=== PATIENT | male | born 1940 | race Caucasian/White ===

== ENCOUNTER 2019-10-25 09:06 | Outpatient (CLI) | payer MEDICARE, SELFPAY ==
--- NOTE | ~2019-10-25 | CT_ITS ---
EXAMINATION:CT chest high resolution wo co DATE: 10/25/2019 09:29 INDICATION: Cough. Chronic obstructive pulmonary disease. Contact with and suspected exposure to COVI D-19. TECHNIQUE: Computed tomography (CT) of the chest was performed without intravenous contrast. Automate d exposure control and iterative reconstruction technique were employed. The dose-length product (DLP ) was 580.03 mGy-cm. COMPARISON: Chest CT 06/12/2018 FINDINGS: There is chronic elevation of right hemidiaphragm. There is mild atelectasis bilaterally. A gain seen are 4 mm and 3 mm nodules in left lower lobe, consistent with granulomatous disease. Calcif ied bilateral lung nodules are consistent with old granulomatous disease. There is mild scarring in p araspinal right lower lobe with slight worsening. No pleural effusion. There is left atrial enlargeme nt of the heart. There are coronary artery calcifications. There is a left chest wall pacer with lead s in the right atrium and right ventricle. No pericardial effusion. There are changes of cholecystect bernadette. There is diffuse hepatic steatosis. There are bridging endplate osteophytes at multiple levels i n the spine, consistent with diffuse idiopathic skeletal hyperostosis (DISH). IMPRESSION: 1. Mild scarring in paraspinal right lower lobe with slight worsening. 2. Chronic elevation of right hemidiaphragm. 3. Diffuse hepatic steatosis. Reviewed, dictated and finalized at location B.
== END 2019-10-25 09:07 | disposition home or self-care (01) ==
LOC: ANHIMG 09:17
PROVIDERS: PCP Internal Medicine; Visit Provider Nurse Practitioner Family
DX: J44.9 Chronic obstructive pulmonary disease, unspecified (principal); R05 Cough; Z77.090 Contact with and (suspected) exposure to asbestos; K76.0 Fatty (change of) liver, not elsewhere classified
CPT/HCPCS: 71250

== ENCOUNTER 2020-03-10 14:29 | Outpatient (CLI) | payer MEDICARE, SELFPAY ==
--- NOTE | ~2020-03-10 | US_ITS ---
EXAMINATION: US carotid duplex BI DATE: 03/10/2020 15:07 INDICATION: Occlusion and stenosis of left carotid artery. TECHNIQUE: Grayscale, color Doppler, and pulsed Doppler images of the cervical carotid arteries were obtained. The degree of vessel stenosis is placed in one of the following categories: normal, <50%, 5 0-69%, >=70% but less than near-occlusion, near-occlusion, or total occlusion. Note that percent sten osis relative to normal distal artery lumen diameter is indirectly measured from velocity measurement s as described by Samy, et al. Radiology 2003; [id number]:340-346. COMPARISON: Ultrasound 08/29/2018 FINDINGS: RIGHT: The right common carotid artery (CCA) peak systolic velocity (PSV) is 66 cm/s. The right internal car otid artery (ICA) PSV is 97 cm/s. The right ICA end-diastolic velocity (EDV) is 18 cm/s. The right IC A/CCA PSV ratio is 1.5. Grayscale and color Doppler images yield an estimate of <50% diameter reducti on from plaque in the ICA. There is antegrade flow in the right vertebral artery. LEFT: The left CCA PSV is 74 cm/s. The left ICA PSV is 150 cm/s. The left ICA EDV is 24 cm/s. The left ICA/ CCA PSV ratio is 2.0. Grayscale and color Doppler images yield an estimate of >=50% diameter reductio n from plaque in the ICA. There is antegrade flow in the left vertebral artery. IMPRESSION: 1. <50% stenosis in the right internal carotid artery. 2. 50-69% stenosis in the left internal carotid artery. Reviewed, dictated and finalized at location A. LER
== END 2020-03-10 14:30 | disposition home or self-care (01) ==
PROVIDERS: PCP Internal Medicine; Visit Provider Internal Medicine Cardiovascular Disease
DX: I65.23 Occlusion and stenosis of bilateral carotid arteries (principal)
CPT/HCPCS: 93880

== ENCOUNTER 2020-03-21 11:39 | Emergency (ER) | payer MEDICARE, SELFPAY ==
[2020-03-21 11:40] VITALS: BP 150/70; PULSE 101; RESP 18; TEMP 36.6; O2SAT 99
--- NOTE | 2020-03-21 12:57 | ED.EPISTAXIS ---
HPI - Epistaxis General Chief complaint: Epistaxis Stated complaint: BLOODY NOSE Time Seen by Provider: 03/21/20 12:37 Source: patient Mode of arrival: ambulatory Limitations: no limitations History of Present Illness HPI Narrative: This is an 79-year-old male that presents the emergency department for left-sided epistaxis since last night. Reports he has had trouble with this over the last couple weeks. He has been seeing Dr. Guerra for this. Reports he had it cauterized yesterday. He takes Xarelto for A. fib. Denies fever. Related Data Home Medications Medication Instructions Recorded Confirmed amlodipine 10 mg tablet 10 mg PO DAILY 03/06/19 03/21/20 chlorthalidone 25 mg tablet 25 mg PO DAILY 03/06/19 03/21/20 pantoprazole 40 mg tablet,delayed 40 mg PO QAM 03/06/19 03/21/20 release tamsulosin 0.4 mg capsule 0.4 mg PO DAILY 03/06/19 03/21/20 atorvastatin 20 mg tablet 20 mg PO DAILY 03/06/20 03/21/20 Allergies Allergy/AdvReac Type Severity Reaction Status Date / Time clarithromycin Allergy Unknown Unknown Verified 03/21/20 11:42 venom-honey bee Allergy Unknown Unknown Verified 03/21/20 11:42 lisinopril AdvReac Unknown Cough Verified 03/21/20 11:42 Review of Systems Review of Systems: Narrative: CONSTITUTIONAL: Denies fever ENT: Reports epistaxis All systems reviewed & are unremarkable except as noted in HPI and below PMFSH Past Medical History Medical History (Updated 03/21/20 @ 15:58 by Beth Baron PA-C) Chronic a-fib Chronic obstructive pulmonary disease, unspecified CKD (chronic kidney disease) stage 3, GFR 30-59 ml/min Controlled type 2 diabetes mellitus without complication COPD exacerbation Essential hypertension Left carotid stenosis Nonrheumatic aortic valve regurgitation Obstructive sleep apnea Pacemaker Stenosis of right carotid artery Upper respiratory infection with cough and congestion Surgical History Surgical History (Updated 03/06/19 @ 08:56 by Lucy Jenkins CMA) History of cholecystectomy Family History Family History (Updated 11/09/16 @ 09:24 by DOCTOR UNKNOWN) Sibling Hypertension Patient's sister is in good health Patient's brother is in good health Mother Family history of malignant neoplasm Father Carcinoma of colon Other Family history of cardiovascular disease Social History Social History Smoking status: Never smoker Second hand tobacco smoke exposure: No Alcohol intake: current Gender identity (if verbalized by the patient): Male Exam Narrative: Exam Narrative: GENERAL: Well-appearing, well-nourished, and in no acute distress. HEAD: Normocephalic, atraumatic. EYES: EOMI. ENT: Left nare without active bleeding. I am able to see the area that was cauterized yesterday. Mucous membranes moist. Oropharynx without tonsillar hypertrophy exudate or other lesions. EXTREMITIES: Normal range of motion. No edema. SKIN: Warm, dry, no rash. NEURO: No focal deficits. Alert and oriented x3. PSYCH: Normal mood and affect Course Vital Signs Vital signs: Vital Signs Temperature 97.8 F 03/21/20 11:40 Pulse Rate 101 H 03/21/20 11:40 Respiratory Rate 18 03/21/20 11:40 Blood Pressure 150/70 H 03/21/20 11:40 Pulse Oximetry 99 03/21/20 11:40 Temperature 97.8 F 03/21/20 11:40 Pulse Rate 99 03/21/20 14:11 Respiratory Rate 16 03/21/20 14:11 Blood Pressure 150/80 H 03/21/20 14:11 Pulse Oximetry 97 03/21/20 14:11 Procedures Epistaxis Control left: Epistaxis Control Date: 03/21/20 Epistaxis Control Time: 15:55 Nose Prepped With: oxymetazoline Direct Inspection: yes Cautery Used: none Device Inserted: nasal tampon Device Size: 5 Patient Tolerated Procedure: well and no complications MDM - Epistaxis Lab Data Attestation: I reviewed the patient's lab results. Result diagrams: 03/21/20 13:01
[2020-03-21 13:10] LABS: Basophils Percent Auto 0.5 % (0.2-1.2); Eosinophils Absolute Auto 0.1 K/mm3 (0-0.3); Eosinophils Percent Auto 1.5 % (0-4.4); Hematocrit 43.2 % (42.0-52.0); Immature Granulocyte Absolute 0.01 K/mm3 (0.00-0.031); Immature Granulocyte Percent A 0.2 % (0-0.5); Lymphocytes Absolute Auto 1.42 K/mm3 (0.9-3.2); Lymphocytes Percent Auto 24.2 % (18.3-44.2); Mean Corpuscular HGB Conc 34.7 g/dl (32-36); Mean Corpuscular Hemoglobin 31.1 pg (26-34); Mean Corpuscular Volume 89.6 fl (80-100); Mean Platelet Volume 10.2 fl (7.4-10.4); Monocytes Absolute Auto 0.3 K/mm3 (0.1-0.6); Monocytes Percent Auto 5.6 % (2.6-8.5); Platelet Count Result 197 k/mm3 (150-375); Red Blood Count 4.82 M/mm3 (4.6-6.20); Red Cell Distribution Width 13.2 % (11.5-14.5); White Blood Count 5.9 K/mm3 (4.5-10.0)
[2020-03-21 13:25] LABS: INR 2.1; Prothrombin Time 24.1 Seconds (11.1-14.7)
[2020-03-21 13:26] LABS: Partial Thromboplastin Time 48.3 SECONDS (22.3-36.8)
[2020-03-21 14:11] VITALS: BP 150/80; PULSE 99; RESP 16; O2SAT 97
== END 2020-03-21 16:16 | disposition home or self-care (01) ==
PROVIDERS: Physician Assistant; Emergency Provider Emergency Medicine; PCP Internal Medicine
DX: R04.0 Epistaxis (principal); I48.20 Chronic atrial fibrillation, unspecified; E11.22 Type 2 diabetes mellitus with diabetic chronic kidney disease; I12.9 Hypertensive chronic kidney disease with stage 1 through stage 4 chronic kidney disease, or unspecified chronic kidney disease; N18.30 Chronic kidney disease, stage 3 unspecified; J44.9 Chronic obstructive pulmonary disease, unspecified; G47.33 Obstructive sleep apnea (adult) (pediatric); Z95.0 Presence of cardiac pacemaker; I35.1 Nonrheumatic aortic (valve) insufficiency; I65.22 Occlusion and stenosis of left carotid artery; Z79.01 Long term (current) use of anticoagulants
CPT/HCPCS: 30901; 36415; 85025; 85610; 85730; 99283; A9270

== ENCOUNTER 2020-09-01 18:06 | Emergency (ER) | payer MEDICARE, SELFPAY ==
[2020-09-01] VITALS (22 sets, daily range): BP systolic 118–129; BP diastolic 52–55; PULSE 60–89; RESP 14–22; TEMP 36.8; O2SAT 92–100
--- NOTE | ~2020-09-01 | CT_ITS ---
EXAMINATION: CT brain wo con EXAM DATE: 09/01/2020 18:53 INDICATION: Seizure. TECHNIQUE: Spiral CT of the head was performed without contrast. Axial, coronal and sagittal images were reviewed. The dose-length product (DLP) for this examination was 605.33 mGy-cm. The exposure w as tailored according to patient size, and iterative reconstruction (ASIR) was used as additional dos e reduction technique. There is no prior study for comparison. FINDINGS: Moderate-sized old right parietal lobe centered infarction. Small old right frontal lobe co rtical infarction. There is no acute intraparenchymal hemorrhage. No evidence of intraparenchymal br ain mass lesion. No evidence of acute infarction. There is no mass effect or midline shift. The ve ntricles are normal in size. There are no extra-axial collections. There are no acute calvarial fra ctures. The orbits are unremarkable. Soft tissue is unremarkable. The visualized sinuses and mastoi d air cells are well aerated. IMPRESSION: 1. No acute intracranial findings. 2. 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 Reviewed, dictated and finalized at location A.
--- NOTE | ~2020-09-01 | XR_ITS ---
EXAMINATION: XR chest 1V portable EXAM DATE: 09/01/2020 18:34 INDICATION: Seizure activity; hx of COPD, non smoker . TECHNIQUE: Portable AP frontal chest x-ray was obtained. Comparison is made to prior examination from 02/28/2017. FINDINGS: There is a dual lead pacemaker/AICD seen with leads projecting over the expected locations of the right atrial appendage and right ventricle. The lungs are clear. There are no pleural effusio ns. Cardiac silhouette is prominent but magnified on this AP technique. There is no pneumothorax s uspected. 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 IMPRESSION: No acute cardiopulmonary findings. Reviewed, dictated and finalized at location A.
[2020-09-01] MEDS: diazePAM INJ (*CRX) 10 MG/2 ML SYRINGE (18:10)
--- NOTE | 2020-09-01 18:15 | ECG_ITS ---
Measurements Intervals [place] Rate: 105 P: OR: 0 QRS: -68 QRSD: 170 T: 109 QT: 384 QTc: 509 Interpretive Statements ELECTRONIC VENTRICULAR PACEMAKER VENTRICULAR COUPLETS AND FREQUENT VENTRICULAR PREMATURE COMPLEXES BASELINE ARTIFACT- II, III, AVR, AVF, V1-V6 NO FURTHER INTERPRETATION IS POSSIBLE ABNORMAL ECG Electronically Signed On 09-02-2020 9:28:19 CDT by Wilmer Bhagat D.O.
--- NOTE | 2020-09-01 18:24 | ED.GENADULT ---
HPI - General Adult General Chief complaint: Seizure Stated complaint: SZ Time Seen by Provider: 09/01/20 18:14 Source: family, EMS and RN notes reviewed Mode of arrival: EMS History of Present Illness HPI narrative: Patient is 80 years old white male brought to the emergency room from home because of hearing his heartbeat at the right ear and burning sensation of the right upper extremity like severe sunburn. Patient denies any chest pain or shortness of breath at that time. Patient's gave him nitroglycerin x1 prior to ambulance arrival, ambulance arrived at home, patient was awake, alert and oriented x4, in the way to the hospital patient had seizure-like activity, with urine incontinence, and trying to bite, arrived to the ED with postictal condition, agitated, disoriented x4. Patient did not have any history of seizure before. Patient received 10 mg of Valium IV Related Data Home Medications Medication Instructions Recorded Confirmed amlodipine 10 mg tablet 10 mg PO DAILY 03/06/19 03/21/20 chlorthalidone 25 mg tablet 25 mg PO DAILY 03/06/19 03/21/20 pantoprazole 40 mg tablet,delayed 40 mg PO QAM 03/06/19 03/21/20 release tamsulosin 0.4 mg capsule 0.4 mg PO DAILY 03/06/19 03/21/20 atorvastatin 20 mg tablet 20 mg PO DAILY 03/06/20 03/21/20 Allergies Allergy/AdvReac Type Severity Reaction Status Date / Time clarithromycin Allergy Unknown Unknown Verified 09/01/20 23:49 venom-honey bee Allergy Unknown Unknown Verified 09/01/20 23:49 lisinopril AdvReac Unknown Cough Verified 09/01/20 23:49 Review of Systems Review of Systems: ROS unobtainable: Yes unobtainable due to medical condition PMFSH Past Medical History Medical History Chronic a-fib Chronic obstructive pulmonary disease, unspecified CKD (chronic kidney disease) stage 3, GFR 30-59 ml/min Controlled type 2 diabetes mellitus without complication COPD exacerbation Essential hypertension Left carotid stenosis Nonrheumatic aortic valve regurgitation Obstructive sleep apnea Pacemaker Stenosis of right carotid artery Upper respiratory infection with cough and congestion Surgical History Surgical History History of cholecystectomy Family History Family History Sibling Hypertension Patient's sister is in good health Patient's brother is in good health Mother Family history of malignant neoplasm Father Carcinoma of colon Other Family history of cardiovascular disease Social History Social History Smoking status: Never smoker Second hand tobacco smoke exposure: No Alcohol intake: current Gender identity (if verbalized by the patient): Male Exam Narrative: Exam Narrative: General appearance: Well-developed, well-nourished, agitated, confused Skin: Normal color Head: Normocephalic, nontraumatic Eyes: Clear conjunctiva ENT: Oropharynx normal, ears normal, nose normal, positive tongue bite Neck: Supple, nontender Chest and respiratory: Hyperventilating, agitated, fighting the staff and resisting them Heart: Irregular heartbeat Abdomen: Soft, nontender, no organomegaly, quiet bowel sounds Vascular: Normal peripheral pulses, normal capillary refill. Neurologic: Disoriented x4, agitated, restless Course Course Emergency Course: Stable, improving Reevaluation(s) Reevaluation #1: Currently patient is awake, alert and oriented x4, denying any symptoms, telling me that he is full code, denying any history of seizure before. Currently no chest pain, no sh
[2020-09-01 18:39] LABS: Basophils Absolute Auto 0.1 K/mm3 (0.0-0.1); Basophils Percent Auto 0.6 % (0.2-1.2); Eosinophils Absolute Auto 0.1 K/mm3 (0-0.3); Eosinophils Percent Auto 1.5 % (0-4.4); Hematocrit 40.5 % (42.0-52.0); Hemoglobin 13.6 g/dL (14.0-18.0); Immature Granulocyte Absolute 0.01 K/mm3 (0.00-0.031); Immature Granulocyte Percent A 0.1 % (0-0.5); Lymphocytes Absolute Auto 3.48 K/mm3 (0.9-3.2); Lymphocytes Percent Auto 44.4 % (18.3-44.2); Mean Corpuscular HGB Conc 33.6 g/dl (32-36); Mean Corpuscular Hemoglobin 29.9 pg (26-34); Mean Platelet Volume 9.9 fl (7.4-10.4); Monocytes Absolute Auto 0.5 K/mm3 (0.1-0.6); Monocytes Percent Auto 6.5 % (2.6-8.5); Neutrophils Absolute Auto 3.7 K/mm3 (1.3-6.7); Neutrophils Percent Auto 46.9 % (45.5-73.1); Platelet Count Result 191 k/mm3 (150-375); Red Blood Count 4.55 M/mm3 (4.6-6.20); Red Cell Distribution Width 13.5 % (11.5-14.5); White Blood Count 7.8 K/mm3 (4.5-10.0)
[2020-09-01 18:49] LABS: INR 1.1; Partial Thromboplastin Time 25.1 SECONDS (22.3-36.8); Prothrombin Time 13.7 Seconds (11.1-14.7)
[2020-09-01 18:50] LABS: Albumin Level 4.6 g/dL (3.5-5.1); Alkaline Phosphatase 53 U/L (38-126); Anion Gap 22 mmol/L (8-16); Aspartate Amino Transferase 30 U/L (17-59); Bilirubin,Total 0.9 mg/dL (0.2-1.3); Blood Urea Nitrogen 35 mg/dL (9-20); Calcium 9.5 mg/dL (8.4-10.2); Carbon Dioxide 15 mmol/L (22-30); Chloride 99 mmol/L (98-107); Estimated CRCL calculation 23 ml/min; Estimated Glomerular Filt Rate 29; Glucose 161 mg/dL (75-110); Sodium 136 mmol/L (137-145)
--- NOTE | 2020-09-01 18:59 | PC.NURSE ---
Patient was incontinent of urine at time of arrival to ED, unable to obtain urine at this time.
[2020-09-01] MEDS: SODIUM CHLORIDE 0.9% IV 1,000 ML 150 ML (19:02)
--- NOTE | 2020-09-01 19:02 | PC.NURSE ---
IV fluids started on patient per eDp verbal order at 150ml/hr
[2020-09-01 19:05] LABS: Alanine Aminotransferase 23 U/L (4-50); NT Pro B Type Natriuretic Pept 2440 pg/mL (5-100); Troponin I 0.056 ng/mL (0.000-0.034)
--- NOTE | 2020-09-01 19:27 | ECG_ITS ---
Measurements Intervals [place] Rate: 66 P: ID: 0 QRS: -43 QRSD: 198 T: 110 QT: 500 QTc: 527 Interpretive Statements ELECTRONIC VENTRICULAR PACEMAKER VENTRICULAR TRIGEMINY BASELINE ARTIFACT- II, III, AVF, V1-V6 ABNORMAL ECG Electronically Signed On 09-02-2020 9:30:40 CDT by Wilmer Bhagat D.O.
[2020-09-01] MEDS: POTASSIUM CHLORIDE 20 MEQ PACKET (FOR LIQUID) 40 MEQ PO (19:56)
[2020-09-01 20:02] LABS: Add Urine Microscopic? YES; Appearance Urine Clear (Clear); Bilirubin Urine Negative (Negative); Blood Urine Negative (Negative); Color Urine Yellow (Yellow); Glucose Urine UA Negative (Negative); Ketones Urine Negative (Negative); Leukocyte Esterase Ur Negative LEU/UL (Negative); Nitrate Urine Negative (Negative); Protein Urine 1+ mg/dL (Negative); Urobilinogen Urine Negative mg/dL (<2.0); WBC Urine 0-3 /hpf
--- NOTE | 2020-09-01 21:13 | PC.NURSE ---
pt states having a headache, talked to GEETA Deleon and stated to give 650mg of Tylenol PO. verbal order read back.
[2020-09-01] MEDS: ACETAMINOPHEN 325 MG TABLET 650 MG PO (21:21)
--- NOTE | 2020-09-01 21:32 | PC.NURSE ---
pt and daughter initially want to be transferred to a closer facility instead of [facility]. this RN spoke with ED MD Deleon, who reports there are no other available beds for pt to transfer to. explained to family by rn. agreeable to transfer to [facility].
--- NOTE | 2020-09-01 21:39 | PC.NURSE ---
Dr. Deleon at bedside giving update. pt being transferred to [facility].
--- NOTE | 2020-09-01 21:58 | PC.NURSE ---
Pt accepted to room 3310 at [facility] on [address] by [address] Mg. report to [facility] [place]. [facility] called and ETA approx [phone]. Family updated and address to [facility] and visitor policy provided.
[2020-09-01 22:02] LABS: Troponin I 0.086 ng/mL (0.000-0.034)
--- NOTE | 2020-09-01 23:47 | PC.NURSE ---
ED paralegal legal secretary called [facility] for ETA. new ETA is 0100.
--- NOTE | 2020-09-01 23:59 | PC.NURSE ---
updated pt that new ETA for [facility] is 0100.
[2020-09-02 01:14] LABS: Troponin I 0.123 ng/mL (0.000-0.034)
[2020-09-02 07:30] LABS: Glucose Point of Care 160 mg/dl (65-105)
== END 2020-09-02 00:53 | disposition short-term general hospital (02) ==
PROVIDERS: Emergency Provider Emergency Medicine; PCP Internal Medicine
DX: R56.9 Unspecified convulsions (principal); R77.8 Other specified abnormalities of plasma proteins; E87.6 Hypokalemia; N17.9 Acute kidney failure, unspecified; I48.20 Chronic atrial fibrillation, unspecified; J44.9 Chronic obstructive pulmonary disease, unspecified; I12.9 Hypertensive chronic kidney disease with stage 1 through stage 4 chronic kidney disease, or unspecified chronic kidney disease; N18.30 Chronic kidney disease, stage 3 unspecified; I35.1 Nonrheumatic aortic (valve) insufficiency; Z95.0 Presence of cardiac pacemaker; I65.23 Occlusion and stenosis of bilateral carotid arteries; Z79.51 Long term (current) use of inhaled steroids; Z79.01 Long term (current) use of anticoagulants
CPT/HCPCS: 36415; 70450; 71045; 80053; 81001; 82948; 83880; 84484; 85025; 85610; 85730; 93005; 96361; 96374; 99285; A9270; J3360; J7030

== ENCOUNTER 2021-10-20 15:10 | Outpatient (CLI) | payer MEDICARE, SELFPAY ==
--- NOTE | ~2021-10-20 | US_ITS ---
EXAMINATION: US carotid duplex BI DATE: 10/20/2021 15:50 INDICATION: Carotid stenosis TECHNIQUE: Grayscale, color Doppler, and pulsed Doppler images of the cervical carotid arteries were obtained. The degree of vessel stenosis is placed in one of the following categories: normal, <50%, 5 0-69%, >=70% but less than near-occlusion, near-occlusion, or total occlusion. Note that percent sten osis relative to normal distal artery lumen diameter is indirectly measured from velocity measurement s as described by Samy, et al. Radiology 2003; [id number]:340-346. Notes: Normal: Peak systolic velocity <125 centimeters/sec and no plaque <50%. Peak systolic velocity <125 ( EDV <40; ICA/CCA PSV ratio <2.0; used these factors only a tandem lesions or low cardiac output or co ntralateral disease) 50-69 %: PSV 125-230 (EDV 40-100; ratio 2-4) >= 70% but less than near occlusion: PSV greater than 230 (EDV > 100; ratio> 4.0) Near Occlusion: PSV that is variable; markedly narrowed lumen Occlusion: Absent flow on color/spectral Doppler and no lumen on moore scale. COMPARISON: None. FINDINGS: RIGHT: The right common carotid artery (CCA) peak systolic velocity (PSV) is 62 cm/s. The right internal car otid artery (ICA) PSV is 73 cm/s. The right ICA end-diastolic velocity (EDV) is 12 cm/s. The right IC A/CCA PSV ratio is 1.2. The external carotid artery (ECA) PSV is 90 cm/s. There is antegrade flow in the right vertebral artery. LEFT: The left CCA PSV is 72 cm/s. The left ICA PSV is 180 cm/s. The left ICA EDV is 28 cm/s. The left ICA/ CCA PSV ratio is 2.5. The ECA PSV is 131 cm/s. There is antegrade flow in the left vertebral artery. IMPRESSION: 1. Less than 50% stenosis in the right internal carotid artery by sonographic criteria. 2. 50-69% stenosis in the left internal carotid artery by sonographic criteria. Reviewed, dictated and finalized at location A. IMPRESSION: 1. Less than 50% stenosis in the right internal carotid artery by sonographic c gigieria. 2. 50-69% stenosis in the left internal carotid artery by sonographic criteria.
== END 2021-10-20 15:11 | disposition home or self-care (01) ==
LOC: ANHIMG 15:13
PROVIDERS: PCP Internal Medicine; Visit Provider Internal Medicine Cardiovascular Disease
DX: I65.23 Occlusion and stenosis of bilateral carotid arteries (principal)
CPT/HCPCS: 93880

== ENCOUNTER 2022-12-02 10:04 | Outpatient (CLI) | payer MEDICARE, SELFPAY ==
--- NOTE | ~2022-12-02 | US_ITS ---
EXAMINATION: US renal BI DATE: 12/02/2022 10:52 INDICATION: Frequency of micturition TECHNIQUE: Multiple ultrasound grayscale images of the kidneys were obtained. COMPARISON: None. FINDINGS: The right kidney measures 10.2 x 4.6 x 4.8 cm. The left kidney measures 10.3 x 5.5 x 4.4 cm. The kidn eys demonstrate normal echogenicity. There is no hydronephrosis in either kidney. No stones identifi ed. The bladder is normal. IMPRESSION: 1. Normal kidneys without hydronephrosis. Reviewed, dictated and finalized at location A.
== END 2022-12-02 10:05 | disposition home or self-care (01) ==
PROVIDERS: PCP Internal Medicine; Visit Provider Internal Medicine Nephrology
DX: R35.0 Frequency of micturition (principal); N18.32 Chronic kidney disease, stage 3b
CPT/HCPCS: 76775

== ENCOUNTER 2023-01-31 13:31 | Emergency (ER) | payer MEDICARE, SELFPAY ==
--- NOTE | ~2023-01-31 | XR_ITS ---
EXAMINATION: XR shoulder LT min 2V DATE: 01/31/2023 15:30 INDICATION: Left humerus pain. Fall. TECHNIQUE: 4 views of left shoulder were obtained. COMPARISON: Left shoulder radiographs 11/17/2022 FINDINGS: Bone alignment is normal. No fracture. There is advanced osteoarthritis of glenohumeral heidi nt and moderate osteoarthritis of acromioclavicular joint. There is a left chest pacer. IMPRESSION: 1. Polyarticular osteoarthritis. Reviewed, dictated and finalized at location E. 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
--- NOTE | ~2023-01-31 | XR_ITS ---
EXAMINATION: XR knee LT min 4V DATE: 01/31/2023 15:30 INDICATION: Left knee pain. Fall. TECHNIQUE: 4 views of left knee were obtained. COMPARISON: Left knee radiographs 09/24/2020 FINDINGS: There is varus angulation at the knee. No fracture. There is severe osteoarthritis of media l compartment and mild osteoarthritis of lateral and patellofemoral compartments. There is a small kn ee joint effusion. IMPRESSION: 1. Severe left knee osteoarthritis. 2. Small left knee joint effusion. Reviewed, dictated and finalized at location E. TRY PRINTER
[2023-01-31 13:52] VITALS: BP 152/53; PULSE 83; RESP 18; TEMP 36.8; O2SAT 99
--- NOTE | 2023-01-31 15:08 | ED.LOWEXIN ---
HPI - Extremity Injury (Lower) General Chief Complaint: Extremity Injury, Lower Stated Complaint: knee injury Time Seen by Provider: 01/31/23 15:40 History of Present Illness HPI Narrative: 82-year-old male presents to the emergency department for evaluation of left knee pain and left shoulder pain after a mechanical fall that occurred 2 days ago. Patient states he was stepping over a pile of clothes and got his right foot stuck on the clothes, he fell to the ground landing on his left knee and left shoulder. He did not hit his head or lose consciousness. States he went to his orthopedist today, Dr. Sabillon, who advised him come to the ED for x-rays. He has been ambulating with a cane. Denies other injuries acquired including pain, hip pain and back pain. Related Data Home Medications Medication Instructions Recorded Confirmed amlodipine 10 mg tablet 10 mg PO DAILY 03/06/19 11/17/22 chlorthalidone 25 mg tablet 25 mg PO DAILY 03/06/19 11/17/22 pantoprazole 40 mg tablet,delayed 40 mg PO QAM 03/06/19 11/17/22 release (Protonix) tamsulosin 0.4 mg capsule (Flomax) 0.4 mg PO DAILY 03/06/19 11/17/22 rivaroxaban 15 mg tablet (Xarelto) 15 mg PO DAILY 11/03/22 11/17/22 Allergies Allergy/AdvReac Type Severity Reaction Status Date / Time clarithromycin Allergy Unknown Unknown Verified 11/17/22 08:21 venom-honey bee Allergy Unknown Unknown Verified 11/17/22 08:21 lisinopril AdvReac Unknown Cough Verified 11/17/22 08:21 Review of Systems Review of Systems: CONSTITUTIONAL: Denies fever, chills, or sweats. EYES: Denies visual changes, redness, or discharge. ENT: Denies rhinorrhea, congestion, sore throat, or otalgia. CARDIOVASCULAR: Denies chest pain, palpitations, or edema. RESPIRATORY: Denies cough or dyspnea. GASTROINTESTINAL: Denies abdominal pain, nausea, vomiting, or diarrhea. GENITOURINARY: Denies dysuria or hematuria. SKIN: Denies rash or itching. MUSCULOSKELETAL: See HPI NEUROLOGIC: Denies headache, numbness, or weakness. PSYCHIATRIC: Denies anxiety or depression. [facility] Past Medical History Medical History Arthritis of both glenohumeral joints Chronic a-fib Chronic obstructive pulmonary disease, unspecified CKD (chronic kidney disease) stage 3, GFR 30-59 ml/min Controlled type 2 diabetes mellitus without complication COPD exacerbation Degenerative arthritis of knee, bilateral Essential hypertension Left carotid stenosis Nonrheumatic aortic valve regurgitation Obstructive sleep apnea Pacemaker Seizures Stenosis of right carotid artery Upper respiratory infection with cough and congestion Surgical History Surgical History History of cholecystectomy Family History Family History Sibling Hypertension Patient's sister is in good health Patient's brother is in good health Mother Family history of malignant neoplasm Father Carcinoma of colon Other Family history of cardiovascular disease Social History Social History Smoking status: Never smoker Second hand tobacco smoke exposure: No Alcohol intake: former Substance use: never Current Housing: Decline to Answer Concerned About Future Housing: Decline to Answer Difficulty Paying Gas/Electric Bills: Decline to Answer Difficulty Paying for Meds: Decline to Answer Currently Unemployed: Decline to Answer Education: Decline to Answer Difficulty w/ Childcare or Family Care: Decline to Answer Living arrangements: with family Occupation/Education: retired Gender identity (if verbalized by the patient): Male Exam Narrative: GENERAL: Well-appearing, well-nourished, and in no acute distress. HEAD: Normocephalic, atraumatic. NECK: No midline cervical spinous tenderness, step-offs or deformities rosie
[2023-01-31] MEDS: ACETAMINOPHEN 325 MG TABLET 650 MG PO (15:37)
== END 2023-01-31 16:00 | disposition home or self-care (01) ==
PROVIDERS: Emergency Provider Physician Assistant; PCP Internal Medicine
DX: S80.02XA Contusion of left knee, initial encounter (principal); S40.012A Contusion of left shoulder, initial encounter; I48.20 Chronic atrial fibrillation, unspecified; I65.21 Occlusion and stenosis of right carotid artery; J44.9 Chronic obstructive pulmonary disease, unspecified; E11.22 Type 2 diabetes mellitus with diabetic chronic kidney disease; I12.9 Hypertensive chronic kidney disease with stage 1 through stage 4 chronic kidney disease, or unspecified chronic kidney disease; I65.23 Occlusion and stenosis of bilateral carotid arteries; I35.1 Nonrheumatic aortic (valve) insufficiency; N18.30 Chronic kidney disease, stage 3 unspecified; G47.33 Obstructive sleep apnea (adult) (pediatric); M17.0 Bilateral primary osteoarthritis of knee; M19.011 Primary osteoarthritis, right shoulder; M19.012 Primary osteoarthritis, left shoulder; Z95.0 Presence of cardiac pacemaker; Z90.49 Acquired absence of other specified parts of digestive tract; W01.0XXA Fall on same level from slipping, tripping and stumbling without subsequent striking against object, initial encounter; Z79.01 Long term (current) use of anticoagulants
CPT/HCPCS: 73030; 73564; 99284; A9270

== ENCOUNTER 2023-05-17 12:12 | Outpatient (CLI) | payer MEDICARE, SELFPAY ==
--- NOTE | ~2023-05-17 | US_ITS ---
Procedure: Duplex Doppler examination of the bilateral carotids. Indication: Left carotid stenosis/occlusion COMPARISON: 10/20/2021 Technique: Real time, color-flow and pulse wave Doppler examination of the bilateral carotids was performed. Findings: Cohen scale ultrasonography of the right neck demonstrated moderate to large calcified plaques at the right carotid bulb. There was demonstration of normal color-flow and Doppler waveforms within the rig ht common, internal and external carotid arteries. The peak systolic velocities in the right common, internal and external carotid arteries were demonstrated to be 65 cm/sec, 74 cm/sec and 85 cm/sec res pectively. The right ICA/CCA ratio was 1.1.The proximal right internal carotid artery demonstrates le ss than 50% stenosis relative to the normal distal artery lumen diameter. Cohen scale sonography of the left neck demonstrated small calcified plaques throughout the left commo n carotid artery, with moderate plaques at the left carotid bulb. There was demonstration of normal c olor-flow and wave forms within the left common, internal and external carotid arteries. The peak sys tolic velocities in the left common, internal and external carotid arteries were demonstrated to be 8 6cm/sec, 53 cm/sec and 93 cm/sec respectively. The left ICA/CCA ratio was 0.6. The proximal left inte rnal carotid artery demonstrates less than 50% stenosis relative to the normal distal artery lumen di ameter. There was antegrade flow demonstrated in the bilateral vertebral arteries. Impression: No hemodynamically significant stenosis of the bilateral internal carotid arteries. Antegrade flow in the bilateral vertebral arteries. Note: The methodology used is an indirect measurement validated against a direct method (such as the NASCET criteria) that compares diameters at the stenosis to the distal ICA. Reviewed, dictated and finalized at location M. Impression: No hemodynamically significant stenosis of the bilateral internal carotid arter ies. Antegrade flow in the bilateral vertebral arteries. Note: The methodology used is an indirect measurement validated against a direct meth od (such as the NASCET criteria) that compares diameters at the stenosis to the distal ICA.
== END 2023-05-17 12:13 | disposition home or self-care (01) ==
PROVIDERS: PCP Internal Medicine; Visit Provider Internal Medicine Cardiovascular Disease
DX: I65.22 Occlusion and stenosis of left carotid artery (principal)
CPT/HCPCS: 93880

== ENCOUNTER 2023-07-25 08:08 | Emergency (ER) | payer MEDICARE, SELFPAY ==
[2023-07-25] VITALS (8 sets, daily range): BP systolic 118–140; BP diastolic 49–59; PULSE 57–82; RESP 12–18; TEMP 36.4; O2SAT 97–100
--- NOTE | ~2023-07-25 | XR_ITS ---
EXAMINATION: XR hip LT min 3V w AP pelvis DATE: 07/25/2023 09:07 INDICATION: Left hip pain. Fall. TECHNIQUE: An anteroposterior view of the pelvis and 3 views of left hip were obtained. COMPARISON: None. FINDINGS: There is lumbar levocurvature and mild spondylosis. No fracture. There is mild osteoarthrit is of the hips. IMPRESSION: 1. Mild osteoarthritis of the hips. Reviewed, dictated and finalized at location E.
--- NOTE | ~2023-07-25 | CT_ITS ---
EXAMINATION: CT brain wo con DATE: 07/25/2023 08:45 INDICATION: Headache. Fall. TECHNIQUE: Computed tomography (CT) of the head was performed without intravenous contrast. The mA wa s adjusted according to patient size. Iterative reconstruction technique was employed. The dose-lengt h product was 681.00 mGy-cm. 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 There is an old infarct in right thalamus. There is no intracranial hemorrhage, acute infarction, or abnormal intracranial mass lesion. The ventricles are normal in size. There is mild mucosal thickening in the ethmoid sinuses. T he mastoid air cells are normal. The orbits are normal. IMPRESSION: 1. 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 Reviewed, dictated and finalized at location E.
--- NOTE | ~2023-07-25 | XR_ITS ---
EXAMINATION: XR shoulder LT min 2V DATE: 07/25/2023 09:08 INDICATION: Left shoulder pain. Fall. TECHNIQUE: 4 views of left shoulder were obtained. COMPARISON: Left shoulder radiographs 01/31/2023 FINDINGS: Bone alignment is normal. No fracture. There is severe osteoarthritis of glenohumeral joint and moderate osteoarthritis of acromioclavicular joint. There is a left chest pacer. IMPRESSION: 1. Polyarticular osteoarthritis. Reviewed, dictated and finalized at location E.
--- NOTE | ~2023-07-25 | CT_ITS ---
EXAMINATION: CT cervical spine wo con DATE: 07/25/2023 08:47 INDICATION: Neck injury. Fall. TECHNIQUE: Computed tomography (CT) of the cervical spine was performed without intravenous contrast. Automated exposure control and iterative reconstruction technique were employed. The dose-length pro duct was 486.93 mGy-cm. COMPARISON: CT cervical spine 01/23/2009 FINDINGS: There is fat stranding in left neck, consistent with inflammation versus hematoma. There is hypolordosis of cervical spine. Vertebral body heights are normal. There is mildly decreased disc he ight at C2-3 and severely decreased disc height from C3-C4 through T2-T3. The following disc levels a re specifically discussed: C2-C3: There is mild bilateral uncovertebral joint osteoarthritis. There is mild right and severe lef t facet joint osteoarthritis. There is mild left neural foraminal stenosis. There is no central canal stenosis. C3-C4: There is moderate right and severe left uncovertebral joint osteoarthritis. There is moderate right and severe left facet joint osteoarthritis. There is mild right and moderate left neural forami nal stenosis. There is mild central canal stenosis. C4-C5: There is severe bilateral uncovertebral joint osteoarthritis. There is moderate right and mendy re left facet joint osteoarthritis. There is mild bilateral neural foraminal stenosis. There is mild central canal stenosis. C5-C6: There is severe bilateral uncovertebral joint osteoarthritis. There is severe bilateral facet joint osteoarthritis. There is mild bilateral neural foraminal stenosis. There is mild central canal stenosis. C6-C7: There is mild right and severe left uncovertebral joint osteoarthritis. There is mild right an d moderate left facet joint osteoarthritis. There is mild left neural foraminal stenosis. There is mi ld central canal stenosis. C7-T1: There is mild bilateral uncovertebral joint osteoarthritis. There is severe bilateral facet cassi int osteoarthritis. There is mild bilateral neural foraminal stenosis. There is no central canal sten osis. IMPRESSION: 1. No fracture. 2. Severe cervical spondylosis. 3. Stranding in left neck, consistent with inflammation versus hematoma. Reviewed, dictated and finalized at location E.
--- NOTE | 2023-07-25 09:43 | ED.FALL ---
HPI - Fall General Chief Complaint: Fall Stated Complaint: fall Time Seen by Provider: 07/25/23 08:34 History of Present Illness HPI Narrative: Patient is an 83-year-old male who presents the emergency department this morning after a ground level fall that occurred yesterday. Patient states that he was going to go visit his at a correction and while using his walker, he got the walker caught into something causing him to fall and land on his left side. Patient believes that he may have hit his head. Daughter was present at bedside states that when he uses his walker he usually keeps it too far in front of him in a state of keeping it close to him as he has been instructed in the past. Patient has a bruise along his left hip, otherwise he is moving all 4 extremities spontaneously. Patient denies passing out. He does take a blood thinner, Eliquis and secondary to this family brought him in this morning for further evaluation. Patient is currently complaining of mild left hip pain, left shoulder pain but denies any headaches, dizziness, focal weakness, numbness and no tingling. No additional symptoms or concerns at this time. Related Data Home Medications Medication Instructions Recorded Confirmed pantoprazole 40 mg tablet,delayed 40 mg PO QAM 03/06/19 06/03/23 release (Protonix) tamsulosin 0.4 mg capsule (Flomax) 0.4 mg PO DAILY 03/06/19 06/03/23 budesonide-formoterol HFA 160 2 puff inhalation Q12H 04/28/23 06/03/23 mcg-4.5 mcg/actuation aerosol inhaler (Symbicort) divalproex 250 mg tablet,delayed 250 mg PO Q12H 04/28/23 06/03/23 release lacosamide 10 mg/mL oral solution 50 mg PO BID 04/28/23 06/03/23 metformin 500 mg tablet 500 mg PO BID 04/28/23 06/03/23 Allergies Allergy/AdvReac Type Severity Reaction Status Date / Time clarithromycin Allergy Unknown Unknown Verified 07/25/23 08:09 venom-honey bee Allergy Unknown Unknown Verified 07/25/23 08:09 lisinopril AdvReac Unknown Cough Verified 07/25/23 08:09 Review of Systems Review of Systems: All systems are reviewed and are negative unless stated otherwise in the HPI. PMFSH Past Medical History Medical History Arthritis of both glenohumeral joints Chronic a-fib Chronic obstructive pulmonary disease, unspecified CKD (chronic kidney disease) stage 3, GFR 30-59 ml/min Controlled type 2 diabetes mellitus without complication COPD exacerbation Degenerative arthritis of knee, bilateral Essential hypertension Left carotid stenosis Nonrheumatic aortic valve regurgitation Obstructive sleep apnea Pacemaker Seizures Stenosis of right carotid artery Upper respiratory infection with cough and congestion Surgical History Surgical History History of cholecystectomy Family History Family History Sibling Hypertension Patient's sister is in good health Patient's brother is in good health Mother Family history of malignant neoplasm Father Carcinoma of colon Other Family history of cardiovascular disease Social History Social History Smoking status: Never smoker Second hand tobacco smoke exposure: No Alcohol intake: former Substance use: never Do You Feel Safe in your Home?: Yes Lack of Transportation: No Lack of Food: Never True Current Housing: Decline to Answer Concerned About Future Housing: No Difficulty Paying Gas/Electric Bills: No Difficulty Paying for Meds: No Currently Unemployed: No Education: Decline to Answer Difficulty w/ Childcare or Family Care: No Living arrangements: with family Occupation/Education: retired Gender identity (if verbalized by the patient): Male Exam Narrative: General: Alert, awake, afebrile, in no acute distress. HEENT: PERRL, no rhinorrhea, no pos
== END 2023-07-25 10:15 | disposition home or self-care (01) ==
PROVIDERS: Emergency Provider Emergency Medicine; PCP Internal Medicine
DX: S70.02XA Contusion of left hip, initial encounter (principal); S09.90XA Unspecified injury of head, initial encounter; I48.20 Chronic atrial fibrillation, unspecified; E11.22 Type 2 diabetes mellitus with diabetic chronic kidney disease; I12.9 Hypertensive chronic kidney disease with stage 1 through stage 4 chronic kidney disease, or unspecified chronic kidney disease; N18.30 Chronic kidney disease, stage 3 unspecified; I65.23 Occlusion and stenosis of bilateral carotid arteries; I35.1 Nonrheumatic aortic (valve) insufficiency; J44.9 Chronic obstructive pulmonary disease, unspecified; G47.33 Obstructive sleep apnea (adult) (pediatric); M17.0 Bilateral primary osteoarthritis of knee; M19.012 Primary osteoarthritis, left shoulder; M19.011 Primary osteoarthritis, right shoulder; M16.0 Bilateral primary osteoarthritis of hip; Z90.49 Acquired absence of other specified parts of digestive tract; Z79.84 Long term (current) use of oral hypoglycemic drugs; Z79.01 Long term (current) use of anticoagulants; M47.812 Spondylosis without myelopathy or radiculopathy, cervical region; R93.7 Abnormal findings on diagnostic imaging of other parts of musculoskeletal system; W01.0XXA Fall on same level from slipping, tripping and stumbling without subsequent striking against object, initial encounter
CPT/HCPCS: 70450; 72125; 73030; 73502; 99284

== ENCOUNTER 2023-11-30 08:57 | Emergency (ER) | payer MEDICARE, SELFPAY ==
[2023-11-30] VITALS (7 sets, daily range): BP systolic 129–138; BP diastolic 53–57; PULSE 60–74; RESP 14–18; TEMP 36.6; O2SAT 97–100
--- NOTE | ~2023-11-30 | CT_ITS ---
CT brain wo con Ordering provider: Beth Baron PA-C History: 83 years Male with . weakness . Comparison: July 25, 2023 Technique: CT of the head without contrast. Radiation reduction technique utilized.The dose-length product was 681 mGy-cm FINDINGS: BRAIN PARENCHYMA AND CSF SPACES: Mild leukoaraiosis and diffuse cortical atrophy. Mild atheromatous d isease. 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 No midline shift, mass effe ct or hemorrhage. The brain parenchyma and CSF spaces are otherwise normal. VISUALIZED PARANASAL SINUSES: Well aerated. MASTOIDS: Well aerated. BONES: The bones appear intact. SOFT TISSUES: Visualized nasopharynx is normal. Superficial soft tissues are normal. IMPRESSION: No acute intracranial findings. Reviewed, dictated and finalized at location A.
--- NOTE | ~2023-11-30 | XR_ITS ---
XR chest 2V Ordering provider: Beth Baron PA-C History: 83 years Male with . generalized weakness . Comparison: September 01, 2020 FINDINGS: MEDIASTINUM: The cardiac silhouette is slightly enlarged. Left bipolar pacemaker. LUNGS: No infiltrates, effusions or pneumothorax. OTHER: No free air under the diaphragm. Degenerative changes of IMPRESSION: No acute cardiopulmonary pathology. Reviewed, dictated and finalized at location A.
--- NOTE | 2023-11-30 09:22 | ECG_ITS ---
Test Date: 2023-11-30 09:44:31 Measurements Intervals [place] Rate: 63 P: 0 NH: 0 QRS: -66 QRSD: 152 T: 114 QT: 449 QTc: 462 Interpretive Statements ELECTRONIC VENTRICULAR PACEMAKER ATYPICAL ECG No previous ECG available for comparison Electronically Signed On 11-30-2023 14:04:11 CDT by Luca Coyle M.D.
--- NOTE | 2023-11-30 09:30 | ED.GENADULT ---
HPI - General Adult General Chief complaint: Unspecified Stated complaint: pacemaker due to be changed, low energy Time Seen by Provider: 11/30/23 09:14 Source: patient and family Mode of arrival: wheelchair Limitations: no limitations History of Present Illness HPI narrative: This is a 83 year old male that presents to the ER for fatigue. Ongoing over the last couple of days. Reports he has been sleeping a lot and doesn't want to get out of bed. Reports his pacemaker battery is due to be changed and they were wondering if this is correlated. His paper sheeter is at [facility]. Patient does not have any focal symptoms. Denies chest pain, shortness of breath, cough, abdominal pain, vomiting, dysuria. Related Data Home Medications Medication Instructions Recorded Confirmed pantoprazole 40 mg tablet,delayed 40 mg PO QAM 03/06/19 10/26/23 release (Protonix) tamsulosin 0.4 mg capsule (Flomax) 0.4 mg PO DAILY 03/06/19 10/26/23 divalproex 250 mg tablet,delayed 250 mg PO Q12H 04/28/23 10/26/23 release lacosamide 10 mg/mL oral solution 50 mg PO BID 04/28/23 10/26/23 metformin 500 mg tablet 500 mg PO BID 04/28/23 10/26/23 Allergies Allergy/AdvReac Type Severity Reaction Status Date / Time clarithromycin Allergy Unknown Unknown Verified 11/30/23 08:58 venom-honey bee Allergy Unknown Unknown Verified 11/30/23 08:58 lisinopril AdvReac Unknown Cough Verified 11/30/23 08:58 Review of Systems Review of Systems: CONSTITUTIONAL: Denies fever ENT: Denies rhinorrhea, congestion, sore throat CARDIOVASCULAR: Denies chest pain RESPIRATORY: Denies cough or dyspnea. GASTROINTESTINAL: Denies abdominal pain, nausea, vomiting GENITOURINARY: Denies dysuria or hematuria. MUSCULOSKELETAL: Reports joint pain, and myalgia. NEUROLOGIC: Reports generalized weakness. All systems reviewed & are unremarkable except as noted in HPI and below PMFSH Past Medical History Medical History Arthritis of both glenohumeral joints Chronic a-fib Chronic obstructive pulmonary disease, unspecified CKD (chronic kidney disease) stage 3, GFR 30-59 ml/min Controlled type 2 diabetes mellitus without complication COPD exacerbation Degenerative arthritis of knee, bilateral Essential hypertension Left carotid stenosis Nonrheumatic aortic valve regurgitation Obstructive sleep apnea Pacemaker Seizures Stenosis of right carotid artery Upper respiratory infection with cough and congestion Surgical History Surgical History History of cholecystectomy Family History Family History Sibling Hypertension Patient's sister is in good health Patient's brother is in good health Mother Family history of malignant neoplasm Father Carcinoma of colon Other Family history of cardiovascular disease Social History Social History Smoking status: Never smoker Second hand tobacco smoke exposure: No Alcohol intake: former Substance use: never Do You Feel Safe in your Home?: Yes Lack of Transportation: No Lack of Food: Never True Current Housing: Decline to Answer Concerned About Future Housing: No Difficulty Paying Gas/Electric Bills: No Difficulty Paying for Meds: No Currently Unemployed: No Education: Decline to Answer Difficulty w/ Childcare or Family Care: No Living arrangements: with family Occupation/Education: retired Gender identity (if verbalized by the patient): Male Exam Narrative: GENERAL: Elderly, well-nourished, and in no acute distress. HEAD: Normocephalic, atraumatic. EYES: PERRLA and EOMI. ENT: Nares clear, no rhinorrhea or epistaxis. Mucous membranes moist. Oropharynx without tonsillar hypertrophy exudate or other lesions. Bilateral TMs pearly moore non-bulging NECK: Suppl
[2023-11-30 10:04] LABS: Basophils Percent Auto 0.9 % (0.2-1.2); Eosinophils Absolute Auto 0.2 K/mm3 (0-0.3); Eosinophils Percent Auto 3.6 % (0-4.4); Hematocrit 37.5 % (42.0-52.0); Hemoglobin 12.9 g/dL (14.0-18.0); Immature Granulocyte Absolute 0.01 K/mm3 (0.00-0.031); Immature Granulocyte Percent A 0.2 % (0-0.5); Lymphocytes Absolute Auto 1.25 K/mm3 (0.9-3.2); Lymphocytes Percent Auto 28.1 % (18.3-44.2); Mean Corpuscular HGB Conc 34.4 g/dl (32-36); Mean Corpuscular Volume 95.9 fl (80-100); Mean Platelet Volume 10.2 fl (7.4-10.4); Monocytes Absolute Auto 0.3 K/mm3 (0.1-0.6); Monocytes Percent Auto 6.1 % (2.6-8.5); Neutrophils Absolute Auto 2.7 K/mm3 (1.3-6.7); Neutrophils Percent Auto 61.1 % (45.5-73.1); Platelet Count Result 157 k/mm3 (150-375); Red Blood Count 3.91 M/mm3 (4.6-6.20); Red Cell Distribution Width 14.3 % (11.5-14.5); White Blood Count 4.5 K/mm3 (4.5-10.0)
[2023-11-30 10:07] LABS: Add Urine Microscopic? NO; Appearance Urine Clear (Clear); Bilirubin Urine Negative (Negative); Blood Urine Negative (Negative); Color Urine Yellow (Yellow); Glucose Urine UA Negative (Negative); Ketones Urine Trace mg/dL (Negative); Leukocyte Esterase Ur Negative LEU/UL (Negative); Nitrate Urine Negative (Negative); Protein Urine Negative (Negative); Specific Grav Ur 1.018 (1.001-1.035)
[2023-11-30 10:14] LABS: Alanine Aminotransferase 13 U/L (6-50); Alkaline Phosphatase 53 U/L (38-126); Anion Gap 8 mmol/L (4-12); Aspartate Amino Transferase 25 U/L (17-59); Blood Urea Nitrogen 23 mg/dL (9-20); Calcium 9.1 mg/dL (8.4-10.2); Carbon Dioxide 27 mmol/L (22-30); Chloride 101 mmol/L (98-107); Estimated CRCL calculation 26 ml/min; Estimated Glomerular Filt Rate 41; Glucose 92 mg/dL (65-110); Potassium 3.9 mmol/L (3.4-5.0); Sodium 136 mmol/L (137-145)
[2023-11-30 10:23] LABS: NT Pro B Type Natriuretic Pept 5290 pg/mL (19.9-100)
[2023-11-30 10:43] LABS: Influenza A QL RT-PCR Negative (Negative); Influenza B QL RT-PCR Negative (Negative); RSV RNA, RT-PCR Negative (Negative); SARS-CoV-2 RNA PCR Negative (Negative)
== END 2023-11-30 13:54 | disposition home or self-care (01) ==
PROVIDERS: Emergency Provider Physician Assistant; PCP Internal Medicine
DX: R53.83 Other fatigue (principal); Z20.822 Contact with and (suspected) exposure to COVID-19; I48.20 Chronic atrial fibrillation, unspecified; E11.22 Type 2 diabetes mellitus with diabetic chronic kidney disease; I12.9 Hypertensive chronic kidney disease with stage 1 through stage 4 chronic kidney disease, or unspecified chronic kidney disease; N18.30 Chronic kidney disease, stage 3 unspecified; I65.23 Occlusion and stenosis of bilateral carotid arteries; J44.9 Chronic obstructive pulmonary disease, unspecified; M17.0 Bilateral primary osteoarthritis of knee; M19.011 Primary osteoarthritis, right shoulder; M19.012 Primary osteoarthritis, left shoulder; G47.33 Obstructive sleep apnea (adult) (pediatric); Z95.810 Presence of automatic (implantable) cardiac defibrillator; Z90.49 Acquired absence of other specified parts of digestive tract; Z79.84 Long term (current) use of oral hypoglycemic drugs; Z79.01 Long term (current) use of anticoagulants; Z79.899 Other long term (current) drug therapy
CPT/HCPCS: 36415; 70450; 71046; 80053; 81003; 83880; 84443; 85025; 87637; 93005; 99284

== ENCOUNTER 2024-05-03 09:16 | Emergency (ER) | payer MEDICARE, SELFPAY ==
[2024-05-03] VITALS (9 sets, daily range): BP systolic 116–135; BP diastolic 42–62; PULSE 60–70; RESP 15–26; TEMP 36.2; O2SAT 96–99
--- NOTE | ~2024-05-03 | CT_ITS ---
EXAMINATION: CT brain wo con DATE: 05/03/2024 13:04 INDICATION: Head injury TECHNIQUE: Computed tomography (CT) of the head was performed without intravenous contrast. Sagittal and coronal reconstructions were performed. The mA was adjusted according to patient size. Iterative reconstruction technique was employed. The dose-length product was 681.00 mGy-cm. COMPARISON: head CT dated 11/30/2023 FINDINGS: No fracture. There are small region of encephalomalacia in the right frontal lobe and more prominentl y at the right temporal parietal region consistent with old infarct. Additional small old lacunar inf arct at the right thalamus. No acute intracranial hemorrhage, acute infarction or abnormal extra axia l fluid collection. There is mild scattered white matter hypoattenuation consistent with chronic smal l vessel ischemic disease. Symmetric prominence of the sulci and ventricles consistent with mild age- appropriate diffuse cerebral volume loss. No mass/mass effect. The orbits, paranasal sinuses and mast oid air cells are normal. IMPRESSION: 1. No fracture or acute intracranial process. 2. 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 2. Age-related changes including mild diffuse volume loss and mild scattered white matter hypoattenua tion consistent with chronic small vessel ischemic disease. Reviewed, dictated and finalized at location L. BOYS TENNIS COACH IMPRESSION: 1. No fracture or acute intracranial process. 2. 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 2. Age-related changes including mild diffuse volume loss and mild scattered wh ite matter hypoattenuation consistent with chronic small vessel ischemic diseas e.
--- NOTE | ~2024-05-03 | CT_ITS ---
EXAMINATION: CT thoracic spine wo con DATE: 05/03/2024 13:09 INDICATION: Back pain. TECHNIQUE: Computed tomography (CT) of the thoracic spine was performed without intravenous contrast. Automated exposure control and iterative reconstruction technique were employed. The dose-length pro duct was 627.33 mGy-cm. COMPARISON: Chest CT 10/25/2019 FINDINGS: There is 10 degrees dextroscoliosis of thoracic spine. There is mild chronic anterior wedgi ng of T6-T12 vertebral bodies. There is mild to moderately decreased disc height at all levels. There are bridging endplate osteophytes from T4 to T12, consistent with diffuse idiopathic skeletal hypero stosis (DISH). There is multilevel mild facet joint osteoarthritis. There is mild central canal steno sis at T1-T2. No neural foraminal stenosis. IMPRESSION: 1. Moderate thoracic spondylosis. 2. DISH. 3. Thoracic dextroscoliosis. Reviewed, dictated and finalized at location A. SPRAYING MACHINE OPERATOR
--- NOTE | ~2024-05-03 | CT_ITS ---
EXAMINATION: 1. CT facial & cervical spine wo DATE: 05/03/2024 13:04 INDICATION: Head and neck pain post fall TECHNIQUE: 1. Computed tomography (CT) of the maxillofacial region and of the cervical spine were performed with out intravenous contrast. Sagittal and coronal reconstructions of both regions were obtained. Automat ed exposure control and iterative reconstruction technique were employed. The dose-length product was 279.31 mGy-cm. COMPARISON: 01/23/2009 FINDINGS: Maxillofacial CT: No maxillofacial fractures. Specifically the nasal bones, zygomatic arches, mandible and rankin of the orbits and paranasal sinuses are normal. Orbits are normal. Mild mucosal thickening the bilateral et hmoid sinuses. Nasal septum is midline. There is dental disease with multiple dental restorations. In tracranial calcified cerebral atherosclerosis is noted at the carotid siphons. Mastoid air cells and middle ear cavities are clear. The right mastoid is hypopneumatized. Atherosclerotic calcification at the bilateral carotid bulbs. There is mild soft tissue swelling likely related to contusion along th e lateral margin of the body of the left mandible. Maxillofacial soft tissues are otherwise unremarka ble. Cervical spine CT: Minimal cervical dextrocurvature. Sagittal alignment is normal. Vertebral body heights are normal. Se todd disc height loss at C3-C4 through C5-C6 and T2-T3 with moderate disc height loss at C2-C3, C6-C7 and T1-T2. There is associated multilevel moderate to severe cervical uncovertebral osteoarthritis. There is multilevel moderate to severe left-sided predominant cervical facet osteoarthritis IMPRESSION: 1. No maxillofacial fractures. 2. Severe cervical spondylosis with no acute osseous abnormality. Reviewed, dictated and finalized at location L. SEXUAL ASSAULT
--- NOTE | ~2024-05-03 | CT_ITS ---
EXAMINATION:CT diagnostic chest wo con DATE: 05/03/2024 13:21 INDICATION: Chest injury. TECHNIQUE: Computed tomography (CT) of the chest was performed without intravenous contrast. Automate d exposure control and iterative reconstruction technique were employed. The dose-length product (DLP ) was 394.35 mGy-cm. COMPARISON: Chest CT 10/25/2019 FINDINGS: The lungs demonstrate mild atelectasis. There is mild scarring in paraspinal right lower lo be. No pleural effusion. Cardiomegaly is noted. There are coronary artery calcifications. There are c alcifications of the aortic valve. No pericardial effusion. There is a left chest wall pacer with kings ds in the right atrium and right ventricle. There are changes of cholecystectomy. There are bridging endplate osteophytes at multiple levels in the spine, consistent with diffuse idiopathic skeletal hyp erostosis (DISH). There is moderate thoracic spondylosis. There is a fracture left 10th rib. IMPRESSION: 1. Left 10th rib fracture. Reviewed, dictated and finalized at location A. HAND IMPRESSION: 1. Left 10th rib fracture.
--- OUTSIDE RECORDS SUMMARY | 2024-05-03 10:04 | XMS_ITS | Referral Summary ---
Author Organization [facility] [address] Address [address] [place] [address] Care Team Providers Care Funder Name Role Phone Varun Orosco MD Primary Care Provider Active Problems Problem Noted Date Diagnosed Date Cardiac pacemaker in situ 10/26/2016 Overview (10/26/2016): Medtronic Dual Pacemaker Dx; Tachy/Denis DOI 10/22/2016. Carelink remote home monitoring Q3 months, Office pacer checks Q1 year. Social History Tobacco Use Types Packs/Day Years Used Date Smoking Tobacco: Never Assessed Sex and Gender Information Value Date Recorded Sex Assigned at Not on file Legal Sex Male 2:45 AM LOG SAWYER Gender Identity Not on file Sexual Orientation Not on file Plan of Treatment Not on file Medical Devices Implanted Type Area Cad Intern Device Identifier Shelf Expiration Date Model / Serial / Lot Pacemaker-2016 Implanted:10/22 by Alban Ordoñez MD (Quantity not on file) Pacemaker Chest Medtronic ADV[address] DR FLOYD / [id number] / Insurance [employer]APAT[employer] Care Teams Funder Relationship Specialty Start Date End Date Varun Orosco MD PCP - General Internal Medicine 10/25/16
--- OUTSIDE RECORDS SUMMARY | 2024-05-03 10:04 | XMS_ITS | Encounter Summary ---
Author Organization [facility] Address [address] [place] [address] Care Team Providers Care Chef Assistant Name Role Phone Varun Orosco MD Primary Care Provider [phone] Encounter Details Date Type Department Care Team (Late st Contact Info) Description 05/04/2021 Telephone [facility] - [facility] [id number] [place] [address] Janet Fletcher MD [address] [facility] [address] [place] [id number] Social History Tobacco Use Types Packs/Day Years Used Date Smoking Tobacco: Never Alcohol Use Standard Drinks/Week Comments Yes 2 (1 standard drink = 0.6 oz pur e alcohol) Sex and Gender Information Value Date Recorded Sex Assigned at Not on file Legal Sex Male 8:06 PM CDT Gender Identity Not on file Sexual Orientation Not on file documented as of this encounter Miscellaneous Notes * Telephone Encounter - jaclyn Caruso - 05/04/2021 12:03 PM 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 Kr RNAL GRINDER SET UP OPERATOR documented in this encounter Plan of Treatment Not on file documented as of this encounter Visit Diagnoses Not on filedocumented in this encounter Care Teams Chef Assistant Relationship Specialty Start Date End Date Varun Orosco MD [address] [facility] [address] [place] [address] PCP - General Internal Medicine 09/02/20 documented as of this encounter
--- OUTSIDE RECORDS SUMMARY | 2024-05-03 10:04 | XMS_ITS | Clinical Summary ---
Author Organization [facility] Address [address] [place] [address] Care Team Providers Care Radio Interference Supervisor Name Role Phone Hang Orosco MD Primary Care Provider Wilmer Bhagat DO Unavailable Allergies Active Allergy Reactions Criticality Noted Date Comments Lisinopril Cough Low 01/26/2021 Medications budesonide-form oterol 160-4.5 MCG/ACT inhaler Inhale 2 puffs into the lungs 2 (two) times daily. Active furosemide 20 MG tablet Take 1 tablet (20 mg total) by mouth daily. Active pantoprazole EC 40 MG tablet Take 1 tablet (40 mg total) by mouth nightly at bedtime. Active tamsulosin 0.4 MG Cap Take 1 capsule (0.4 mg total) by mouth daily. Active vitamin B-12 500 MCG tablet Take 1 tablet (500 mcg total) by mouth nightly at bedtime. Active fluticasone-mack meterol 230-21 MCG/ACT inhaler Inhale 2 puffs into the lungs every 12 (twelve) hours. 8 g 1 01/27/2021 Active metFORMIN 500 MG tablet Take 1 tablet (500 mg total) by mouth 2 (two) times daily. 02/02/2021 Active EPINEPHrine (EPIPEN) 0.3 MG/0.3ML injection Inject 0.3 mLs (0.3 mg total) into the muscle as needed for Anaphylaxis. Active albuterol sulfate HFA 108 (90 Base) MCG/ACT inhaler Inhale 2 puffs into the lungs every 4 (four) hours. Active ELIQUIS 2.5 MG tablet Take 1 tablet (2.5 mg total) by mouth 2 (two) times daily. 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 09/05/2023 Active hydrALAZINE (APRESOLINE) 25 MG tablet Take 1 tablet (25 mg total) by mouth 2 (two) times daily. 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 12/13/2023 Active pravastatin (PRAVACHOL) 10 MG tablet Take 1 tablet (10 mg total) by mouth daily. 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 Seizures ([facility]) 03/27/2023 Class 1 obesity 03/03/2023 Essential tremor 01/28/2023 Low back pain 10/01/2022 Pain of right hip joint 10/01/2022 Hyperlipidemia 05/24/2022 Tremor 05/18/2022 Diabetic peripheral neuropathy ([facility]) 05/18/2022 COVID-19 03/18/2022 Chronic renal failure 01/26/2022 Osteoarthrosis 03/24/2021 Localized, primary osteoarthritis of shoulder re gion 02/12/2021 CVA (cerebral vascular accident) ([facility]) 01/27/2021 Seizure ([facility]) 01/26/2021 Bilateral carotid artery stenosis 09/02/2020 Provoked seizure ([facility]) 09/02/2020 Stage 3a chronic kidney disease ([facility] ) 09/02/2020 Pure hypercholesterolemia 02/05/2020 Type 2 diabetes mellitus wit hout complication ([facility]) 02/17/2018 Cardiac pacemaker in situ 10/26/2016 Overview (01/26/2021): Medtronic Dual Pacemaker Dx; Tachy/Denis DOI 10/22/2016. Care[employer] remote home monitoring Q3 months, Office pacer checks Q1 year. Atrial fibrillation ([facility]) 10/26/2016 Anemia 10/11/2016 Essential hypertension 09/28/2016 Pulmonary emphysema ([facility]) 09/28/2016 Gastroesophageal reflux disease 09/28/2016 Benign prostatic hyperplasia 09/28/2016 SSS (sick sinus syndrome) ([facility]) Encounters Date Type Department Care Team Description 04/12/2024 Telephone [facility] Multispecialty Care - [facility] [address], [address] [place] [address] Mendel Rea MD Appointment Request (Botox/Follow up) 03/23/2024 10:34 AM [employer] - 03/23/2024 11:59 PM [employer] Hospital Encounter [facility] [address] [place] [address] Hang Orosco MD Discharge Disposition: Home or Self Care (Routine Discharge) 03/22/2024 12:30 PM [employer] Office Visit [facility], [facility] [address] [place] [address] Anya Julien PA Sick Sinus Syndrome; Follow Up 03/22/2024 Travel 03/09/2024 Telephone [facility], [facility] [address] [place] [address] Christina Araya RN Returned Call 03/09/2024 Telephone [facility], [facility] [address] [place] [address] Silke Bailon MA Information 03/02/2024 Telephone [facility], [address] [place] [address] Christina Araya RN No Show 02/17/2024 11:26 AM [employer] - 02/17/2024 11:59 PM [employer] Hospital Encounter [facility] [place] [address] Alban Morgan MD Discharge Disposition: Home or Self Care (Routine Discharge) 02/17/2024 11:26 AM [employer] - 02/17/2024 5:30 PM [employer] Hospital Encounter [facility] [place] [address] Alban Morgan MD Portera Mankins, Sally B, MD Discharge Disposition: Home or Self Care (Routine Discharge) 02/17/2024 Travel 02/17/2024 Orders Only [facility] [place] [address] Alban Morgan MD from Last 3 Months Immunizations Name Administration Dates Next Due COVID-19 Vaccine (Generic) 01/04/2023,07/03/2020 ,06/03/2020 Influenza (FluMist) 01/04/2023 Influenza (Generic) 12/01/2019,12/08/2017 Influenza Adult (Generic) 11/26/2021,09/2020,12/11/2018,2017,12/21/2016 [employer] (KAYLA [employer] KAYLA) COVID-19 AD26 VACCINE 0.5 ML IM SUSP 01/17/2021,05/06/2020 Spotwise COVID-19 (ORIGINAL FORMULATION, PURPLE CAP) mRNA, LNP-S, PF, 30 MCG/0.3 ML DOSE 11/26/2021 Pneumococcal (Pneumovax 23) 06/16/2018 Pneumococcal (Prevnar 13) 12/21/2016 RSV MAB, UNSPECIFIED 02/08/2023 Social History Tobacco Use Types Packs/Day Years Used Date Smoking Tobacco: Never Smokeless Tobacco: Never Tobacco Cessation:Counseling Given: Not Answered Alcohol Use Standard Drinks/Week Comments Yes 0 (1 standard drink = 0.6 oz pur e alcohol) rarely [facility] Utilities Answer Date Recorded In the past 12 months has th e electric, gas, oil, or water company threatened to shut off services in your home? No 03/27/2023 Humiliation, Afraid, Rape, and Kick questionnair e Answer Date Recorded Within the last year, have y ou been afraid of your partner or ex-partner? No 03/27/2023 Within the last year, have y ou been humiliated or emotionally abused in other ways by your partner or ex-partner? No Within the last year, have y ou been kicked, hit, slapped, or otherwise physically hurt by your partner or ex-partner? No 03/27/2023 Within the last year, have y ou been raped or forced to have any kind of sexual activity by your partner or ex-partner? No 03/27/2023 Social Connection and Isolat ion Panel [NHANES] Answer Date Recorded In a typical week, how many times do you talk on the phone with family, friends, or neighbors? More than three times a week 03/27/2023 How often do you get togethe r with friends or relatives? More than three times a week 03/27/2023 How often do you attend [facility] or baptism services? 1 to 4 times per year 03/27/2023 Do you belong to any clubs o r organizations such as religion groups, unions, fraternal or athletic groups, or school groups? No 03/27/2023 How often do you attend meet ings of the clubs or organizations you belong to? Never 03/27/2023 Are you , , di vorced, , never , or living with a partner? 03/27/2023 AUDIT-C Answer Date Recorded Q1: How often do you have a drink containing alcohol? Never 03/27/2023 Q2: How many drinks containi ng alcohol do you have on a typical day when you are drinking? Patient does not drink Q3: How often do you have si x or more drinks on one occasion? Never 03/27/2023 Overall Financial Resource Strain (CARDIA) Answe r Date Recorded How hard is it for you to pa y for the very basics like food, housing, medical care, and heating? Not hard at all 03/27/2023 PHQ-2 Answer Date Recorded Patient Health Questionnaire-2 Score 0 05/05/2023 [facility] - Occupational Stress Questionnaire Answer Date Recorded Do you feel stress - tense, restless, nervous, or anxious, or unable to sleep at night because your mind is troubled all the time - these days? Not at all 03/27/2023 Hunger Vital Sign Answer Date Recorded Within the past 12 months, y ou worried that your food would run out before you got the money to buy more. Never true 03/27/19 24 Within the past 12 months, t he food you bought just didn't last and you didn't have money to get more. Never true 03/27/2023 PRAPARE - Transportation Answer Date Re corded In the past 12 months, has l ack of transportation kept you from medical appointments or from getting medications? No 03/01 In the past 12 months, has l ack of transportation kept you from meetings, work, or from getting things needed for daily living? No 03/27/2023 Housing Stability Vital Sign Answer Federico e Recorded In the last 12 months, was t here a time when you were not able to pay the mortgage or rent on time? No 03/27/2023 In the last 12 months, how many places have you lived? 1 03/27/2023 In the last 12 months, was t here a time when you did not have a steady place to sleep or slept in a usp (including now)? No 03/27/2023 Sex and Gender Information Value Date Recorded Sex Assigned at Male 03/22/2024 12:04 PM [employer] Legal Sex Male 9:30 AM [employer] Gender Identity Not on file Sexual Orientation Not on file Last Filed Vital Signs Vital Sign Reading Time Taken Comments Blood Pressure 100/40 03/22/2024 12:42 PM [employer] Pulse 71 03/22/2024 12:42 PM [employer] Temperature 36.3 C (97.4 F) 02/17/2024 12:30 PM [employer] Respiratory Rate 20 02/17/2024 5:00 PM [employer] Oxygen Saturation 97% 03/22/2024 12:42 PM [employer] Inhaled Oxygen Concentration - - Weight 69.4 kg (153 lb) 03/22/2024 12:42 PM [employer] Height 162.6 cm (5' 4 ) 03/22/2024 12:42 PM [employer] Body Mass Index 26.26 03/22/2024 12:42 PM [employer] Plan of Treatment Upcoming Encounters Date Type Department Care Team (Late st Contact Info) Description 05/21/2024 2:00 PM CDT [facility] [address] [place] [address] Alban Morgan MD [facility]. [address] [place] [address] 07/16/2024 9:30 AM CDT Office Visit [facility] [place] [address] Bradley Kulkarni MD [facility] [address] [place] [address] 03/28/2025 9:00 AM [employer] Office Visit [facility] [place], [address] [place] [address] Alban Morgan MD [facility]. [address] [place] [address] Health Maintenance Due Date Last Done Comments Kidney Health Evaluation 1940 Diabetes: Retinopathy Eye Exam 1956 DTaP, Tdap and Td Vaccines (1 - Tdap) 1957 Zoster Vaccines (1 of 2) 1988 Annual Medicare Wellness Visit 07/13/2003 RSV Immunization or 60+ Years (1 - 1-dose 75+ series) 2013 Hemoglobin A1C 07/26/2021 01/26/2021 ASCVD LDL 01/27/2022 01/27/2021 Lipid Panel 01/27/2022 01/27/2021 COVID-19 Vaccine ( season) 2023 01/04/2023, 11/26/2021, 02/04/2021, Additional history exists Influenza Adult (#1) 2023 01/04/2023, 11/26/2021, 01/05/2021, Additional history exists PHQ-2 (Physician [place]) 02/29/2024 05/05/2023 Pneumococcal Vaccine: 65+ Years Completed 06/16/2018, 12/21/2016 RSV Immunizations Under 20 Months Aged Out 02/08/2023 No longer eligible based on patient's age to complete this topic Meningococcal B Vaccine Aged Out No l onger eligible based on patient's age to complete this topic Meningococcal Vaccine Aged Out No iliana adam eligible based on patient's age to complete this topic Goals Goal Patient Goal Type Associated Problems Recent Progress Patient-Stated? Author Patient will return to prior living situation and remain independent in ADLs upon discharge from hospital [facility] No Liliana Saenz RN Medical Devices Implanted Type Area Alum Operator Device Identifier Shelf Expiration Date Model / Serial / Lot Ra Lead Implant-2016 Implanted:Qty : 1 on 10/22/2016 by Alban Ordoñez MD Lead Implant Atrium [employer] CARDIAC RHYTHM AND HEART FAILURE - DIV M [id number] / [id number] / Rv Lead Implant-2016 Implanted:Qty : 1 on 10/22/2016 by Alban Ordoñez MD Lead Implant Ventricle [employer] CARDIAC RHYTHM AND HEART FAILURE - DIV M 5076 / [id number] / Pacemaker- Implanted: by Alban Morgan MD (Quantity not on file) Pacemaker Chest [employer] CARDIAC RHYTHM AND HEART FAILURE - DIV M 06/11/2025 / [id number] / Explanted Type Area Alum Operator Device Identifier Shelf Expiration Date Model / Serial / Lot Pacemaker-Medt -10/22/2016 Implanted:09/29 (Quantity not on file) Explanted:01/29 by Alban Morgan MD (Quantity not on file) Pacemaker [employer] CARDIAC RHYTHM AND HEART FAILURE - DIV M [id number] [id number] / [id number] / Description:Pacemaker is MRI safe per Medtronic 01/26/2021 Procedures Procedure Name Priority Date/Time Associated Diagnosis Comments XR WRIST RT MIN 3V Routine 03/23/2024 11 :26 AM [employer] Right wrist pain XR ELBOW RT 2V Routine 03/23/2024 11:26 AM [employer] Right elbow pain XR HIP RT 2V Routine 03/23/2024 11:26 AM [employer] Right hip pain XR SHOULDER RT MIN 2V Routine 03/23/2024 11:26 AM [employer] Right shoulder pain XA PACEMAKER GENERATOR CHANGE Routine 02/17/2024 4:28 PM [employer] Paroxysmal atrial fibrillation (CMS/HCC HHS/HCC) SSS (sick sinus syndrome) (CMS/HCC HHS/HCC) Pacemaker generator end of life PROTHROMBIN TIME, VENOUS STAT 02/17/2024 11:31 AM [employer] Paroxysmal atrial fibrillation (CMS/HCC HHS/HCC) SSS (sick sinus syndrome) (CMS/HCC HHS/HCC) Pacemaker generator end of life CBC W/DIFF AUTOMATED STAT 02/17/2024 11:31 AM [employer] Paroxysmal atrial fibrillation (CMS/HCC HHS/HCC) SSS (sick sinus syndrome) (CMS/HCC HHS/HCC) Pacemaker generator end of life BASIC METABOLIC PANEL STAT 02/17/2024 11:31 AM [employer] Paroxysmal atrial fibrillation (CMS/HCC HHS/HCC) SSS (sick sinus syndrome) (CMS/HCC HHS/HCC) Pacemaker generator end of life MRSA SCREENING STAT 02/17/2024 11:26 AM [employer] Paroxysmal atrial fibrillation (CMS/HCC HHS/HCC) SSS (sick sinus syndrome) (CMS/HCC HHS/HCC) Pacemaker generator end of life LIPID PANEL Routine 01/27/2021 4:34 AM [employer] HEMOGLOBIN, GLYCOSYLATED Routine 01/26/2021 9:30 AM [employer] from Last 3 Months or Most Recently Relevant to Health Maintenance Results * XR WRIST RT MIN 3V (03/23/2024 11:26 AM [employer]) Anatomical Region Laterality Modality Wrist Radiographic Meaghan ging 03/23/2024 3:48 PM [employer] Impressions 03/23/2024 3:49 PM [employer] IMPRESSION: No acute osseous abnormality. Ordered By: HANG OROSCO Interpreted By: Koffi Saxena MD, 03/23/2024 3:48 PM Narrative 03/23/2024 3:49 PM [employer] [place] [address] Examination: XR WRIST RT MIN 3V Exam time: 03/23/2024 10:48 AM Indication: Right wrist pain. Fall. Comparison: None available. Technique: 4 views of the right wrist, 4 images. Findings: No fracture or dislocation. There are osteoarthritic changes of the wrist most prominent at the first CMC and STT joint. Arterial vascular calcifications can be seen in the distal forearm. Procedure Note Koffi Saxena MD - 03/23/2024 [place] [address] Examination: XR WRIST RT MIN 3V Exam time: 03/23/2024 10:48 AM Indication: Right wrist pain. Fall. Comparison: None available. Technique: 4 views of the right wrist, 4 images. Findings: No fracture or dislocation. There are osteoarthritic changes ofthe wrist most prominent at the first CMC and STT joint. Arterial vascularcalcifications can be seen in the distal forearm. IMPRESSION: No acute osseous abnormality. Ordered By: HANG OROSCO Interpreted By: Koffi aSxena MD, 03/23/2024 3:48 PM Hang Orosco MD GENERAL IMAGING Final Result * XR SHOULDER RT MIN 2V (03/23/2024 11:26 AM [employer]) Anatomical Region Laterality Modality Shoulder Radiographic Meaghan ging 03/23/2024 3:45 PM [employer] Impressions 03/23/2024 3:46 PM [employer] IMPRESSION: No acute osseous abnormality. Severe glenohumeral osteoarthritis. Ordered By: HANG OROSCO Interpreted By: Koffi Saxena MD, 03/23/2024 3:45 PM Narrative 03/23/2024 3:46 PM [employer] [address] [address] Examination: XR SHOULDER RT MIN 2V Exam time: 03/23/2024 10:48 AM Indication: Right shoulder pain after a fall 3 days ago. Comparison: None available. Technique: 4 views of the right shoulder, 4 images. Findings: No evidence of fracture or dislocation. There are mild osteoarthritic changes of the AC joint with severe glenohumeral osteoarthritis. No radiographically evident soft tissue abnormality. Procedure Note Koffi Saxena MD - 03/23/[address] [address] Examination: XR SHOULDER RT MIN 2V Exam time: 03/23/2024 10:48 AM Indication: Right shoulder pain after a fall 3 days ago. Comparison: None available. Technique: 4 views of the right shoulder, 4 images. Findings: No evidence of fracture or dislocation. There are mildosteoarthritic changes of the AC joint with severe glenohumeralosteoarthritis. No radiographically evident soft tissue abnormality. IMPRESSION: No acute osseous abnormality. Severe glenohumeralosteoarthritis. Ordered By: HANG OROSCO Interpreted By: Koffi Saxena MD, 03/23/2024 3:45 PM Hang Orosco MD GENERAL IMAGING Final Result * XR HIP RT 2V (03/23/2024 11:26 AM [employer]) Anatomical Region Laterality Modality Hip Radiographic Meaghan ging 03/23/2024 3:46 PM [employer] Impressions 03/23/2024 3:47 PM [employer] IMPRESSION: No acute osseous abnormality. Ordered By: HANG OROSCO Interpreted By: Koffi Saxena MD, 03/23/2024 3:46 PM Narrative 03/23/2024 3:47 PM [employer] [place] [id number] Examination: XR HIP RT 2V Exam time: 03/23/2024 10:48 AM Indication: Right hip pain. Comparison: None available. Technique: AP view the pelvis with 2 views of the right hip, 4 images. Findings: No fracture or dislocation. There are mild degenerative changes of the bilateral hips. The pubic symphysis and SI joints are unremarkable. Noted arterial vascular calcifications. Mild degenerative changes of the lumbar spine are suboptimally characterized. Procedure Note Koffi Saxena MD - 03/23/[address] [address] Examination: XR HIP RT 2V Exam time: 03/23/2024 10:48 AM Indication: Right hip pain. Comparison: None available. Technique: AP view the pelvis with 2 views of the right hip, 4 images. Findings: No fracture or dislocation. There are mild degenerative changesof the bilateral hips. The pubic symphysis and SI joints are unremarkable.Noted arterial vascular calcifications. Mild degenerative changes of thelumbar spine are suboptimally characterized. IMPRESSION: No acute osseous abnormality. Ordered By: HANG OROSCO Interpreted By: Koffi Saxena MD, 03/23/2024 3:46 PM Hang Orosco MD GENERAL IMAGING Final Result * XR ELBOW RT 2V (03/23/2024 11:26 AM [employer]) Anatomical Region Laterality Modality Elbow Radiographic Meaghan ging 03/23/2024 3:47 PM [employer] Impressions 03/23/2024 3:48 PM [employer] IMPRESSION: No acute osseous abnormality. Ordered By: HANG OROSCO Interpreted By: Koffi Saxena MD, 03/23/2024 3:47 PM Narrative 03/23/2024 3:48 PM [employer] [place] [id number] Examination: XR ELBOW RT 2V Exam time: 03/23/2024 10:48 AM Indication: Right elbow pain. Fall. Comparison: None available. Technique: 2 views of the right elbow, 2 images. Findings: No fracture or dislocation. There are mild degenerative changes of the shoulder. Enthesopathic changes at the common flexor tendon origin as well as the triceps tendon origin. Arterial vascular calcifications can be seen in the forearm. No elbow joint effusion. Procedure Note Koffi Saxena MD - 03/23/[address] [address] Examination: XR ELBOW RT 2V Exam time: 03/23/2024 10:48 AM Indication: Right elbow pain. Fall. Comparison: None available. Technique: 2 views of the right elbow, 2 images. Findings: No fracture or dislocation. There are mild degenerative changesof the shoulder. Enthesopathic changes at the common flexor tendon originas well as the triceps tendon origin. Arterial vascular calcifications canbe seen in the forearm. No elbow joint effusion. IMPRESSION: No acute osseous abnormality. Ordered By: HANG OROSCO Interpreted By: Koffi Saxena MD, 03/23/2024 3:47 PM Hang Orosco MD GENERAL IMAGING Final Result * XA PACEMAKER GENERATOR CHANGE (02/17/2024 4:28 PM [employer]) Anatomical Region Laterality Modality Cardiac Divider Operator Narrative 02/27/2024 12:26 AM [employer] Table formatting from the original result was not included. [facility] CARDIAC CATHETERIZATION/EP LAB [phone] Pacemaker Replacement Patient's Name: Jonnathan Candelario Date of : 1940 Medical Record: #[id number] Account: #[id number] Physician: Alban Morgan MD Date: 02/17/2024 Procedure: #[id number] Indication: Sick Sinus Syndrome Complete Heart Block History: 83 year old male with permanent atrial fibrillation, SSS s/p pacemaker, and now complete heart block here for pacemaker generator changes as his device has reached elective replacement interval. Physical Exam: Vitals: Per nursing record. Abdominal: Normal HEENT: Carotid upstroke normal. Lungs: Clear to auscultation bilaterally. CV: PMI normal, S1/S2 normal. No murmurs noted. Extremities: No edema noted Vascular: No aortic/carotid/femoral bruits noted. Pulses: Femoral: 2+ DP: 2+ PT: 2+ Procedure: ? Sedation was provided by asphalt plant laborer RN and documented separately for divided doses of Versed and Fentanyl. I performed moderate sedation for 25 minutes. I supervised and directed Zackary Figueroa/Clara Dukes RN who assisted in monitoring the patient's level of consciousness and physiologic status throughout the procedure. The patient's device was noted to be at its elective replacement interval. The device was implanted for sick sinus syndrome. Consent was obtained from the patient after a full explanation of the risks and benefits of the procedure. The patient was brought to the electrophysiology lab in the fasting state. The patient was prepped and draped in the usual sterile fashion. Local anesthesia was infiltrated at the site of the previous incision. Using a combination of a scalpel, electrocautery (with Peak Plasmablade), and blunt dissection, the generator was exposed. The leads were then disconnected from the generator and reconnected to the new pulse generator. The leads were carefully dissected from the pocket. Lead parameters were checked and noted to be stable and similar to the prior generator. The generator and leads were placed back into the pocket. The pocket was irrigated with antibiotic solution. The incision was then closed in three layers: a 2-0 Vicryl/3-0 Vicryl for the subcutaneous tissues, and a running 4-0 Vicryl for the subcuticular layer. The skin was then sealed with Steri-strips. The patient was transported to the holding area in stable condition. There were no immediate periprocedural complications. Summary: Successful pulse generator replacement. Recommendations: Incision check in two weeks, and post-operative antibiotics for 24 hours. Parameters: Mode: VVI Lower rate limit: 60 Upper rate limit: 130 Mode switch rate: 171 Rate responsive: On Paced/Sensed AV delay: NA Device settings: RA RV Output NA 2.0V Output pulse width NA 0.4 ms Measurements: RA RV Amplitude 0.4mV dependent Pacing impedance 456? 471? Pacing threshold Atrial fibrillation 0.75V Pulse width NA 0.4 ms Alum Operator: Real Savvy Device Model #[id number] Device Serial # [id number] Lead Data: Ventricular Lead Model # 5076-52 Ventricular Lead Serial # [id number] Atrial Lead Model #5076-45 Atrial Lead Serial #[id number] Alban Morgan MD MH/ Interpreted: 02/23/24 Transcribed: 02/23/24 Alban Morgan MD BOX MAKER Final Resul t * PROTIME/INR, VENOUS (02/17/2024 11:31 AM [employer]HALT PLANT LABORER) [facility] PROTIME 12.9 10.2 - 12.9 SEC 02/17/2024 12:02 PM [employer]HALT PL[employer] LABORER [facility] INR 1.1 02/17/2024 12:02 PM [employer]ORER [facility] Comment: Recommended INR Therapeutic Goals: 2.0-3.0 Routine Therapy 2.5-3.5 Mechanical Prosthetic Valves (High Risk) 02/17/2024 11:3 1 AM [employer] LABORER Alban Morgan MD LABORATORY Final Resul t [facility] [address] [place] [address], [place] [phone] * (ABNORMAL) BASIC METABOLIC PANEL (02/17/2024 11:31 AM [employer]ORER) GLUCOSE 97 70 - 99 MG/DL 02/17/2024 12:[address] [facility] BUN 21(H) 7 - 18 MG/DL 02/17/2024 12:[address] [facility] CREATININE S/P/B 1.57(H) 0.7 - 1.3 MG/DL 02/17/2024 12:[address] [facility] SODIUM S/P/B 138 136 - 145 MMOL/L 02/17/2024 12:[address] [facility] POTASSIUM S/P/B 4.1 3.5 - 5.1 MMOL/L 02/17/2024 12:[address] [facility] CHLORIDE S/P/B 107 97 - 115 MMOL/L 02/17/2024 12:[address] [facility] CO2 26.0 21 - 32 MMOL/L 02/17/2024 12:[address] [facility] CALCIUM S/P/B 9.4 8.5 - 10.1 MG/DL 02/17/2024 12:[address] [facility] ANION GAP 5.0 2 - 10 MMOL/L 02/17/2024 12:[address] [facility] BUN CREATININE RATIO 13.4 6 - 26 02/17/2024 12:[address] [facility] GFR ESTIMATE 43(L) >90 ML/MIN/1.7 3 M2 02/17/2024 12:[address] [facility] Comment: NOTE: eGFR is not calculated for patients <18 years of age or gender unknown. This is an estimated GFR calculation using the new CKD EPI creatinine equation without race and so does not require a correction factor for race. This estimated GFR should not be used for calculating drug doses. 02/17/2024 11:3 1 AM [employer]ORER us Alban Morgan MD LABORATORY Final Resul t [facility] [address] [place] [address], * (ABNORMAL) CBC W/DIFF AUTOMATED (02/17/2024 11:31 AM [employer]ORER) WBC 4.98 4.5 - 11.0 x10'3/uL 02/17/2024 11:44 AM [employer] [facility] RBC 4.35(L) 4.70 - 6.10 x10'6/uL 02/17/2024 11:[address] [facility] HGB 13.7(L) 14.0 - 18.0 G/DL 02/17/2024 11:[address] [facility] HCT 41.5(L) 43.0 - 54.0 % 02/17/2024 11:[address] [facility] MCV 95.4(H) 80.0 - 94.0 FL 02/17/2024 11:[address] [facility] MCH 31.5(H) 27.0 - 31.0 PG 02/17/2024 11:[address] [facility] MCHC 33.0 32.0 - 36.0 G/DL 02/17/2024 11:[address] [facility] RDW 13.7 11.5 - 14.5 % 02/17/2024 11:[address] [facility] PLT 189 130 - 400 x10'3/uL 02/17/2024 11:[address] [facility] MPV 9.8 9.3 - 12.2 FL 02/17/2024 11:[address] [facility] DIFFERENTIAL TYPE AUTOMATED DIFFERENTIAL 02/17/2024 11:[address] [facility] NEUTROPHILS % 46.8 % 02/17/2024 11:44 AM [employer] [facility] LYMPHOCYTES % 43.0 % 02/17/2024 11:[address] [facility] MONOCYTES % 7.0 % 02/17/2024 11:[address] [facility] EOSINOPHILS 2.4 % 02/17/2024 11:44 AM [employer] [facility] BASOPHILS 0.6 % 02/17/2024 11:44 AM [employer] [facility] IMMATURE GRANS % 0.2 % 02/17/20 11:[address] [facility] ABS. NEUTROPHILS 2.33 1.80 - 7.70 x10'3/uL 02/17/2024 11:[address] [facility] ABS. LYMPHOCYTES 2.14 1.00 - 4.80 x10'3/uL 02/17/2024 11:44 AM [employer] [facility] ABS. MONOCYTES 0.35 0.30 - 0.82 x10'3/uL 02/17/2024 11:[address] [facility] ABS. EOSINOPHILS 0.12 0.04 - 0.54 x10'3/uL 02/17/2024 11:44 AM [employer] [facility] ABS. BASOPHILS 0.03 0.01 - 0.08 x10'3/uL 02/17/2024 11:44 AM [employer] [facility] ABS. IMMATURE GRANULOCYTES 0.01 0.00 - 0.49 x10'3/uL 02/17/2024 11:[address] [facility] 02/17/2024 11:3 1 AM [employer] us Alban Morgan MD LABORATORY Final Resul t [facility] [address] [place] [address], [place] [phone] * MRSA SCREENING (02/17/2024 11:26 AM [employer]) SPEC DESCRIPTION NASAL 02/17/2024 11:26 AM [employer] [facility] SPECIAL REQUESTS NO SPECIAL REQUEST 02/17/2024 11:26 AM [employer] [facility] CULTURE RESULT NO METHICILLIN RESISTANT STAPHYLOCOCCUS AUREUS ISOLATED 02/18/2024 12:46 PM [employer] [facility] SPECIMEN FROM INTERNAL NOSE / Unknown 02/17/2024 11:26 AM [employer]ER 02/17/2024 11:34 AM [employer] Alban Morgan MD MICROBIOLOGY - GENERAL ELVIA CHAN Final Result Performing Organization Address City/State/[facility] Co de Phone Number [facility] [address] [place] [address], [place] [phone] * (ABNORMAL) LIPID PANEL (01/27/2021 4:34 AM [employer]) CHOLESTEROL 82 <200 MG/DL 01/27/2021 5:[address] [facility] TRIGLYCERIDES 56 <150 MG/DL 01/27/2021 5:58 AM [employer] [facility] HDL 34(L) >40.0 MG/DL 01/27/2021 5:[address] [facility] LDL (CALCULATED) 37 <100 MG/DL 01/28/20 5:[address] [facility] NON HDL CHOLESTEROL 48 <130 MG/DL 01/27 5:[address] [facility] CHOL/HDL RATIO 2.4 0.0 - 4.5 01/27/2021 5:[address] [facility] VLDL CALCULATION 11 5 - 55 MG/DL 01/27/2021 5:58 AM [employer] LAB[employer]ER [facility] LIPID INTERPRETATION 01/27/2021 5:58 AM [employer] LABORER [facility] Comment: NIH CONCENSUS REPORT RECOMMENDATIONS: ADULT CHILD LOW RISK: CHOLESTEROL <200 <170 TRIGLYCERIDE <150 --- HDL >=60 --- LDL <100 <110 BORDERLINE: CHOLESTEROL 200-239 170-199 TRIGLYCERIDE 150-199 --- HDL 40-59 --- LDL 100-159 110-129 HIGH RISK: CHOLESTEROL >=240 >=200 TRIGLYCERIDE >=200 --- HDL <40 --- LDL >=160 >=130 01/27/2021 4:34 AM [employer] Jhony Houser PA-C LABORATORY Final Result Performing Organization Address City/[facility] de Phone Number [facility] [address] [place] [address], [place] [phone] * (ABNORMAL) HEMOGLOBIN, GLYCOSYLATED (01/26/2021 9:30 AM [employer]) HGB A1C 7.7(H) <5.7 % 01/26/2021 2:26 PM [employer] [facility] Comment: ADA GUIDELINES 2010 5.7 TO 6.4% INCREASED RISK OF DIABETES > OR = 6.5% CONSISTENT WITH DIABETES ESTIMATED AVG GLUCOSE 174 mg/dL 01/26/2021 2:26 PM [employer] [facility] 01/26/2021 9:30 AM [employer] Jhony Houser PA-C LABORATORY Final Result Performing Organization Address City/[facility]/ZIP Co de Phone Number [facility] [address] [place] [address], [place] [phone] from Last 3 Months or Most Recently Relevant to Health Maintenance Insurance [employer] Advance Directives * Full Code (Latest Code Status on File) Date Activated Date Inactivated Comments 02/17/2024 4:13 PM 02/17/2024 7:30 PM * Full Code Date Activated Date Inactivated Comments 03/27/2023 2:35 AM 03/31/2023 4:03 PM * Full Code Date Activated Date Inactivated Comments 01/26/2021 12:46 PM 01/27/2021 7:21 PM Care Teams Radio Interference Supervisor Relationship Specialty Start Date End Date Hang Orosco MD [address] [phone] PCP - General INTERNAL MEDICINE 01/26/21 Wilmer Bhagat DO [address] [facility] [address] [facility] [address] [place] [address] Vascular/Data Base Administrator INTERNAL MEDICINE 01/26/21
--- OUTSIDE RECORDS SUMMARY | 2024-05-03 10:04 | XMS_ITS | Clinical Summary ---
Author Organization [facility] Address [address] [place] [address] Phone Care Team Providers Care Brake [address] Freight Name Role Phone Varun Orosco MD Primary Care Provider [phone] Medications hydrALAZINE (APRESOLINE) 100 mg Tablet tablet Take 50 mg by mouth. Active furosemide (LASIX) 20 mg tablet Take 20 mg by mouth daily. Active budesonide-form oteroL (SYMBICORT) 160-4.5 mcg/actuation HFA Aerosol Inhaler Take 2 Puffs by inhalation 2 times daily. Active amLODIPine (NORVASC) 10 mg tablet Take 10 mg by mouth daily. Active chlorthalidone (HYGROTON) 25 mg tablet Take 25 mg by mouth daily. Active pantoprazole (PROTONIX) 40 mg Tablet, Delayed Release (E.C.) Take 40 mg by mouth daily. Active tamsulosin (FLOMAX) 0.4 mg capsule Take 0.4 mg by mouth daily. Active atorvastatin (LIPITOR) 20 mg tablet Take 20 mg by mouth daily. Active rivaroxaban (Xarelto) 15 mg Tablet Take 15 mg by mouth. Active Active Problems Problem Noted Date Diagnosed Date Provoked seizure 09/02/2020 Paroxysmal atrial fibrillation 09/02/2020 Elevated troponin 09/02/2020 Bilateral carotid artery stenosis 09/02/2020 Benign hypertension 09/02/2020 ZA (acute kidney injury) 09/02/2020 Stage 3a chronic kidney disease 09/02/2020 COPD (chronic obstructive pulmonary disease) 07/2020 Cardiac pacemaker in situ 09/02/2020 Type 2 diabetes mellitus without complications 0 09/02/2020 Family History Medical History Relation Name Comments Colon Cancer Father Cancer Mother Relation Name Status Comments Father Mother Social History Tobacco Use Types Packs/Day Years [...] Sign Reading Time Taken Comments Blood Pressure 132/51 09/03/2020 12:26 PM CDT Pulse 90 09/03/2020 12:26 PM CDT Temperature 36.6 C (97.9 F) 09/03/2020 12:26 PM CDT Respiratory Rate 16 09/03/2020 12:26 PM CDT Oxygen Saturation 99% 09/03/2020 12:26 PM CDT Inhaled Oxygen Concentration - - Weight 82.7 kg (182 lb 4.8 oz) 09/03/2020 6:21 A M CDT Height 162.6 cm (5' 4 ) 09/02/2020 1:50 AM CDT Body Mass Index 31.29 09/02/2020 1:50 AM CDT Plan of Treatment Health Maintenance Due Date Last Done Comments DIABETES ANNUAL FOOT EXAM 1956 DIABETES ANNUAL RETINAL EXAM 1956 DIABETES MICROALBUMIN ANNUAL SCREEN 1956 LDL CHOLESTEROL ANNUAL 1956 DTAP/TDAP/TD VACCINES (1 - Tdap) 1957 ZOSTER VACCINE (1 of 2) 1988 RSV VACCINE (60+ or ) (1 - 1-dose 75+ series) 2013 DIABETES HBA1C Q 6 MONTHS 06/17/2020 12/18/2019 INFLUENZA VACCINE (#1) 2023 12/21/2016 PNEUMOCOCCAL VACCINE 50+ YEARS Completed 06/16/2018 , 12/21/2016 Medical Devices Implanted Type Area Analog Design Engineer Device Identifier Shelf Expiration Date Model / Serial / Lot Pacemaker Pacemaker [employer] [id number] / [id number] / Description:MRI conditional - adina 09/02/[address] Bhagat, phone # [phone] Insurance HU[employer]NA GOLD PLUS HMO MCR Advance Directives For more information, please contact: [phone] * Full Code (Latest Code Status on File) Date Activated Date Inactivated Comments 09/02/2020 3:52 AM 09/03/2020 4:16 PM Care Teams [address] Freight Relationship Specialty Start Date End Date Varun Orosco MD [address] [address] PCP - General Internal Medicine 09/02/20
--- OUTSIDE RECORDS SUMMARY | 2024-05-03 10:04 | XMS_ITS | Encounter Summary ---
Author Organization [facility] Address [facility] [place] [address] Care Team Providers Care Design Eng Name Role Phone Varun Orosco MD Primary Care Provider [phone] Wilmer Bhagat DO Unavailable Encounter Details Date Type Department Care Team (Late st Contact Info) Description 01/24/2024 ProPublica Message Enc [place] [facility], [facility] [address] [place] [address] Alban Morgan MD [facility]. [facility] [address] [place], [place] [id number] Procedure Social History Tobacco Use Types Packs/Day Years Used Date Smoking Tobacco: Never Smokeless Tobacco: Never Alcohol Use Standard Drinks/Week Comments Yes 0 (1 standard drink = 0.6 oz pur e alcohol) rarely [facility] Utilities Answer Date Recorded In the past 12 months has [facility] [employer], gas, oil, or water [employer] threatened to shut off services in your [...] week 03/27/2023 How often do you attend chur ch or sabianist services? 1 to 4 times per year 03/27/2023 Do you belong to any clubs o r organizations such as methodist groups, unions, fraternal or athletic groups, or [...] Recorded Patient Health Questionnaire-2 Score 0 05/05/2023 [facility] - Occupational Stress [...] place to sleep or slept in a nursing home (including now)? 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 Answer Date of Assessment Author Status No 03/27/2023 10:43 AM Petrona Goff RN Active * Do you have serious difficulty walking or climbing stairs? Answer Date of Assessment Author Status No 03/27/2023 10:43 AM Petrona Goff RN Active * Do you have difficulty dressing or bathing? Answer Date of Assessment Author Status No 03/27/2023 10:43 AM Petrona Goff RN Active * Because of a physical, mental, or emotional condition, do you have difficulty doing errands alone such as visiting a doctor's office or shopping? Answer Date of Assessment Author Status Yes 03/27/2023 10:43 AM Petrona Goff RN Active documented as of this encounter Mental Status * Because of a physical, mental, or emotional condition, do you have serious difficulty concentrating, remembering, or making decisions? Answer Entry Date Author Status No 03/27/2023 10:43 AM STUD DAIRY CATTLE FARMER Petrona Mendoza RN Active documented in this encounter Plan of Treatment Upcoming Encounters Date Type Department Care Team (Late st Contact Info) Description 05/21/2024 2:00 PM CDT [facility] [place] [address] [place] [address] Alban Morgan MD Three [facility]. [place] [address] [place] [address] 07/16/2024 9:30 AM CDT Office Visit [facility] [address] [place] [address] Bradley Kulkarni MD [facility] [address] [place], [place] [address] 03/28/2025 9:00 AM STUD DAIRY CATTLE FARMER Office Visit [facility] [address] [facility] [place] [address] [place] [address] Alban Morgan MD [facility]. [place] [address] [place] [address] documented as of this encounter Goals Goal Patient Goal Type Associated Problems Recent Progress Patient-Stated? Author Patient will return to prior living situation and remain independent in ADLs upon discharge from hospital General No Liliana Saenz, STAN documented as of this encounter Visit Diagnoses Not on filedocumented in this encounter Additional Health Concerns Assessment Noted Time PHQ-9 Depression Total Score: 0 02/13/20 21 2:42 PM STUD DAIRY CATTLE FARMER documented as of this encounter Care Teams Design Eng Relationship Specialty Start Date End Date Varun Orosco MD [address] [facility] [address] [place] [phone] PCP - General INTERNAL MEDICINE 01/26/21 Wilmer Bhagat DO [address] [place] [address] Vascular/Trailer Technician INTERNAL MEDICINE 01/26/21 documented as of this encounter
--- OUTSIDE RECORDS SUMMARY | 2024-05-03 10:04 | XMS_ITS | Clinical Summary ---
Author Organization [facility] [address] Address [address] [place] [address] Care Team Providers Care Curator Name Role Phone Varun Orosco MD Primary Care Provider Active Problems Problem Noted Date Diagnosed Date Cardiac pacemaker in situ 10/26/2016 Overview (10/26/2016): Medtronic Dual Pacemaker Dx; Tachy/Deins DOI 10/22/2016. Carelink remote home monitoring Q3 months, Office pacer checks Q1 year. 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
--- NOTE | 2024-05-03 11:09 | ECG_ITS ---
Test Date: 2024-05-03 11:13:01 Measurements Intervals [place] Rate: 61 P: 0 PA: 0 QRS: -71 QRSD: 153 T: 112 QT: 435 QTc: 439 Interpretive Statements ELECTRONIC VENTRICULAR PACEMAKER ABNORMAL RHYTHM ECG Compared to ECG 11/30/2023 09:44:31 No significant changes Electronically Signed On 05-03-2024 14:06:25 RAMP MANAGER by Rodrick Avila M.D.
--- OUTSIDE RECORDS SUMMARY | 2024-05-03 13:26 | XMS_ITS | Encounter Summary ---
Author Organization [facility] Address [facility] [place] [address] Care Team Providers Care Orientation And Mobility Specialist Name Role Phone Varun Orosco MD Primary Care Provider [phone] Wilmer Bhagat DO Unavailable Encounter Details Date Type Department Care Team (Late st Contact Info) Description 01/24/2024 [employer] Message Enc [place] [facility], [facility] [address] [place] [address] Alban Morgan MD [facility]. [facility] [address] [place], [place] [address] Procedure Social History Tobacco Use Types Packs/Day Years Used Date Smoking Tobacco: Never Smokeless Tobacco: Never Alcohol Use Standard Drinks/Week Comments Yes 0 (1 standard drink = 0.6 oz pur e alcohol) rarely [facility] Utilities Answer Date Recorded In the past 12 months has [facility] [employer], gas, oil, or water [employer] threatened to shut off services in your [...] often do you attend chur ch or mosque services? 1 to 4 times per year 03/27/2023 Do you belong to any clubs o r organizations such as anglican groups, unions, fraternal or athletic groups, or [...] Recorded Patient Health Questionnaire-2 Score 0 05/05/2023 [facility] Occupat ional Health - Occupational Stress [...] place to sleep or slept in a senior living (including now)? 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 [place] [address] [place] [address] 07/16/2024 9:30 AM CDT Office Visit [place] [facility] [address] [place] [address] Bradley Kulkarni MD [facility]., [address] [place], [place] [address] 03/28/2025 9:00 AM LIGHT ARMORED VEHICLE OFFICER Office Visit [facility] THREE [facility] [place] [address] [place] [address] Alban Morgan MD [facility]. [place] [address] [place] [address] documented as of this encounter Goals Goal [...] Total Score: 0 02/13/20 21 2:42 PM LIGHT ARMORED VEHICLE OFFICER documented as of this encounter Care Teams Orientation And Mobility Specialist Relationship Specialty Start Date End Date Varun Orosco MD [address] [facility] [address] [place] [phone] PCP - General INTERNAL MEDICINE 01/26/21 Wilmer Bhagat DO [address] [place] [address] Vascular/Instrument Repair Technician INTERNAL MEDICINE 01/26/21 documented as of this encounter
--- OUTSIDE RECORDS SUMMARY | 2024-05-03 13:26 | XMS_ITS | Encounter Summary ---
Author Organization [facility] Address [address] [place] [address] Care Team Providers Care Web Content Specialist Name Role Phone Varun Orosco MD Primary Care Provider [phone] Encounter Details Date Type Department Care Team (Late st Contact Info) Description 05/04/2021 Telephone [facility]UR[facility] - [facility] [id number] [place] [address] Janet Fletcher MD [address] [facility] [address] [place] [phone] Social History Tobacco Use Types Packs/Day [...] - jaclyn Caruso - 05/04/2021 12:03 PM WEBSPHERE ARCHITECT Was unable to leave a message for a pt due to no voicemail. Kr PHERE ARCHITECT documented in this encounter Plan of Treatment Not on file documented as of this encounter Visit Diagnoses Not on filedocumented in this encounter Care Teams Web Content Specialist Relationship Specialty Start Date End Date Varun Orosco MD [address] [facility] [address] [place] [address] PCP - General Internal Medicine 09/02/20 documented as of this encounter
--- OUTSIDE RECORDS SUMMARY | 2024-05-03 13:26 | XMS_ITS | Clinical Summary ---
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
--- OUTSIDE RECORDS SUMMARY | 2024-05-03 13:26 | XMS_ITS | Clinical Summary ---
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 12/13/2023 Active pravastatin (PRAVACHOL) 10 MG tablet Take 1 tablet (10 mg total) by mouth daily. 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 Seizures ([facility]) 03/27/2023 Class 1 obesity 03/03/2023 Essential tremor 01/28/2023 Low back pain 10/01/2022 Pain of right hip joint 10/01/2022 Hyperlipidemia 05/24/2022 Tremor 05/18/2022 Diabetic peripheral neuropathy ([facility]) 05/18/2022 COVID-19 03/18/2022 Chronic renal failure 01/26/2022 Osteoarthrosis 03/24/2021 Localized, primary osteoarthritis of shoulder re gion 02/12/2021 CVA (cerebral vascular accident) ([facility]/ C) 01/27/2021 Seizure ([facility]) 01/26/2021 Bilateral carotid artery stenosis 09/02/2020 Provoked seizure ([facility]) 09/02/2020 Stage 3a chronic kidney disease ([facility] ) 09/02/2020 Pure hypercholesterolemia 02/05/2020 Type 2 diabetes mellitus wit hout complication ([facility]) 02/17/2018 Cardiac pacemaker in situ 10/26/2016 Overview (01/26/2021): Medtronic Dual Pacemaker Dx; Tachy/Denis DOI 10/22/2016. Carelink remote home monitoring Q3 months, Office pacer checks Q1 year. Atrial fibrillation ([facility]) 10/26/2016 Anemia 10/11/2016 Essential hypertension 09/28/2016 Pulmonary emphysema ([facility]) 09/28/2016 Gastroesophageal reflux disease 09/28/2016 Benign prostatic hyperplasia 09/28/2016 SSS (sick sinus syndrome) ([facility]) Encounters Date Type Department Care Team Description 04/12/2024 Telephone [facility] Multispecialty Care - [facility] [address], [address] [place] [address] Mendel Rea MD Appointment Request (Botox/Follow up) 03/23/2024 10:34 AM LIGHTING TECHNICIAN - 03/23/2024 11:59 PM LIGHTING TECHNICIAN Hospital Encounter [facility] [address] [place] [address] Hang Orosco MD Discharge Disposition: Home or Self Care (Routine Discharge) 03/22/2024 12:30 PM LIGHTING TECHNICIAN Office Visit [facility] [address] [place] [address] Anya Julien PA Sick Sinus Syndrome; Follow Up 03/22/2024 Travel 03/09/2024 Telephone [facility], [facility] [address] [place] [address] Christina Araya RN Returned Call 03/09/2024 Telephone [facility], [facility] [address] [place] [address] Silke Bailon MA Information 03/02/2024 Telephone [facility], [address] [place] [address] Christina Araya RN No Show 02/17/2024 11:26 AM LIGHTING TECHNICIAN - 02/17/2024 11:59 PM LIGHTING TECHNICIAN Hospital Encounter [facility] [place] [address] Alban Morgan MD Discharge Disposition: Home or Self Care (Routine Discharge) 02/17/2024 11:26 AM LIGHTING TECHNICIAN - 02/17/2024 5:30 PM LIGHTING TECHNICIAN Hospital Encounter [facility] [place] [address] Alban Morgan MD Portera Mankins, Sally B, MD Discharge Disposition: Home or Self Care (Routine Discharge) 02/17/2024 Travel 02/17/[address] [facility] [place] [address] Alban Morgan MD from Last 3 Months Immunizations Name Administration Dates Next Due COVID-19 Vaccine (Generic) 01/04/2023,07/03/2020 ,06/03/2020 Influenza (FluMist) 01/04/2023 Influenza (Generic) 12/01/2019,12/08/2017 Influenza Adult (Generic) 11/26/2021,09/2020,12/11/2018,2017,12/21/2016 Shot Stats (KAYLA & KAYLA) COVID-19 AD26 VACCINE 0.5 ML IM SUSP 01/17/2021,05/06/2020 [employer] COVID-19 (ORIGINAL FORMULATION, PURPLE CAP) mRNA, LNP-S, PF, 30 MCG/0.3 ML DOSE 11/26/2021 Pneumococcal (Pneumovax 23) 06/16/2018 Pneumococcal (Prevnar 13) 12/21/2016 RSV MAB, UNSPECIFIED 02/08/2023 Social History Tobacco Use Types Packs/Day Years Used Date Smoking Tobacco: Never Smokeless Tobacco: Never Tobacco Cessation:Counseling Given: Not Answered Alcohol Use Standard Drinks/Week Comments Yes 0 (1 standard drink = 0.6 oz pur e alcohol) rarely [facility] Utilities Answer Date Recorded In the [...] week 03/27/2023 How often do you attend [facility] or yazdanism services? 1 to 4 times per year [...] Recorded Patient Health Questionnaire-2 Score 0 05/05/2023 [facility] [place] of Occupat ional Health - Occupational Stress [...] place to sleep or slept in a fci (including now)? No 03/27/2023 Sex and Gender Information Value Date Recorded Sex Assigned at Male 03/22/2024 12:04 PM LIGHTING TECHNICIAN Legal Sex Male 9:30 AM LIGHTING TECHNICIAN Gender Identity Not on file Sexual Orientation Not on file Last Filed Vital Signs Vital Sign Reading Time Taken Comments Blood Pressure 100/40 03/22/2024 12:42 PM LIGHTING TECHNICIAN Pulse 71 03/22/2024 12:42 PM LIGHTING TECHNICIAN Temperature 36.3 C (97.4 F) 02/17/2024 12:30 PM LIGHTING TECHNICIAN Respiratory Rate 20 02/17/2024 5:00 PM LIGHTING TECHNICIAN Oxygen Saturation 97% 03/22/2024 12:42 PM LIGHTING TECHNICIAN Inhaled Oxygen Concentration - - Weight 69.4 kg (153 lb) 03/22/2024 12:42 PM LIGHTING TECHNICIAN Height 162.6 cm (5' 4 ) 03/22/2024 12:42 PM LIGHTING TECHNICIAN Body Mass Index 26.26 03/22/2024 12:42 PM LIGHTING TECHNICIAN Plan of Treatment Upcoming Encounters Date Type Department Care Team (Late st Contact Info) Description 05/21/2024 2:00 PM CDT [facility] [place] [address] [place] [address] Alban Morgan MD [facility]. [address] [place] [address] 07/16/2024 9:30 AM CDT Office Visit [facility] [place] [address] Bradley Kulkarni MD [facility] [place] [address] 03/28/2025 9:00 AM LIGHTING TECHNICIAN Office Visit [facility], [address] [place] [address] Alban Morgan MD [facility]. [address] [place] [address] Health Maintenance Due Date Last Done Comments [...] 11/26/2021, 01/05/2021, Additional history exists PHQ-2 (Physician [place]) 02/29/2024 05/05/2023 Pneumococcal Vaccine: 65+ Years Completed [...] independent in ADLs upon discharge from hospital [facility] No Liliana Saenz RN Medical Devices Implanted Type Area Commercial Decorator Device Identifier Shelf Expiration Date Model / Serial / Lot Ra Lead Implant-2016 Implanted:Qty : 1 on 10/22/2016 by Alban Ordoñez MD Lead Implant Atrium MEDTRONIC CARDIAC RHYTHM AND HEART FAILURE - DIV M 5076 / [id number] / Rv Lead Implant-2016 Implanted:Qty : 1 on 10/22/2016 by Alban Ordoñez MD Lead Implant Ventricle MEDTRONIC CARDIAC RHYTHM AND HEART FAILURE - DIV M 5076 / [id number] / Pacemaker- Implanted: by Alban Morgan MD (Quantity not on file) Pacemaker Chest [employer]TRONIC CARDIAC RHYTHM AND HEART FAILURE - DIV M 06/11/2025 / [id number] / Explanted Type Area Commercial Decorator Device Identifier Shelf Expiration Date Model / Serial / Lot Pacemaker-Medt -10/22/2016 Implanted:09/29 (Quantity not on file) Explanted:01/29 by Alban Morgan MD (Quantity not on file) Pacemaker MEDTRONIC CARDIAC RHYTHM AND HEART FAILURE - DIV M [id number] [id number] / [id number] / Description:Pacemaker is MRI safe per Medtronic 01/26/2021 Procedures Procedure Name Priority Date/Time Associated Diagnosis Comments XR WRIST RT MIN 3V Routine 03/23/2024 11 :26 AM LIGHTING TECHNICIAN Right wrist pain XR ELBOW RT 2V Routine 03/23/2024 11:26 AM LIGHTING TECHNICIAN Right elbow pain XR HIP RT 2V Routine 03/23/2024 11:26 AM LIGHTING TECHNICIAN Right hip pain XR SHOULDER RT MIN 2V Routine 03/23/2024 11:26 AM LIGHTING TECHNICIAN Right shoulder pain XA PACEMAKER GENERATOR CHANGE Routine 02/17/2024 4:28 PM LIGHTING TECHNICIAN Paroxysmal atrial fibrillation (CMS/HCC HHS/HCC) SSS (sick sinus syndrome) (CMS/HCC HHS/HCC) Pacemaker generator end of life PROTHROMBIN TIME, VENOUS STAT 02/17/2024 11:31 AM LIGHTING TECHNICIAN Paroxysmal atrial fibrillation (CMS/HCC HHS/HCC) SSS (sick sinus syndrome) (CMS/HCC HHS/HCC) Pacemaker generator end of life CBC W/DIFF AUTOMATED STAT 02/17/2024 11:31 AM LIGHTING TECHNICIAN Paroxysmal atrial fibrillation (CMS/HCC HHS/HCC) SSS (sick sinus syndrome) (CMS/HCC HHS/HCC) Pacemaker generator end of life BASIC METABOLIC PANEL STAT 02/17/2024 11:31 AM LIGHTING TECHNICIAN Paroxysmal atrial fibrillation (CMS/HCC HHS/HCC) SSS (sick sinus syndrome) (CMS/HCC HHS/HCC) Pacemaker generator end of life MRSA SCREENING STAT 02/17/2024 11:26 AM LIGHTING TECHNICIAN Paroxysmal atrial fibrillation (CMS/HCC HHS/HCC) SSS (sick sinus syndrome) (CMS/HCC HHS/HCC) Pacemaker generator end of life LIPID PANEL Routine 01/27/2021 4:34 AM LIGHTING TECHNICIAN HEMOGLOBIN, GLYCOSYLATED Routine 01/26/2021 9:30 AM LIGHTING TECHNICIAN from Last 3 Months or Most Recently Relevant to Health Maintenance Results * XR WRIST RT MIN 3V (03/23/2024 11:26 AM LIGHTING TECHNICIAN) Anatomical Region Laterality Modality Wrist Radiographic Meaghan ging 03/23/2024 3:48 PM LIGHTING TECHNICIAN Impressions 03/23/2024 3:49 PM LIGHTING TECHNICIAN IMPRESSION: No acute osseous abnormality. Ordered By: HANG OROSCO Interpreted By: Koffi Saxena MD, 03/23/2024 3:48 PM Narrative 03/23/2024 3:49 [place] [address] Examination: XR WRIST RT MIN 3V Exam [...] Procedure Note Koffi Saxena MD - 03/23/2024 [place] [address] Examination: XR WRIST RT MIN 3V Exam [...] No acute osseous abnormality. Ordered By: HANG OROCSO Interpreted By: Koffi Saxena MD, 03/23/2024 3:48 PM Hang Orosco MD GENERAL IMAGING Final Result * XR SHOULDER RT MIN 2V (03/23/2024 11:26 AM LIGHTING TECHNICIAN) Anatomical Region Laterality Modality Shoulder Radiographic Meaghan ging 03/23/2024 3:45 PM LIGHTING TECHNICIAN Impressions 03/23/2024 3:46 PM LIGHTING TECHNICIAN IMPRESSION: No acute osseous abnormality. Severe glenohumeral osteoarthritis. Ordered By: HANG OROSCO Interpreted By: Koffi Saxena MD, 03/23/2024 3:45 PM Narrative 03/23/2024 3:46 PM LIGHTING TECHNICIAN [address] [address] Examination: XR SHOULDER RT MIN 2V Exam [...] Procedure Note Koffi Saxena MD - 03/23/[address] [address] Examination: XR SHOULDER RT MIN 2V Exam [...] XR HIP RT 2V (03/23/2024 11:26 AM LIGHTING TECHNICIAN) Anatomical Region Laterality Modality Hip Radiographic Meaghan ging 03/23/2024 3:46 PM LIGHTING TECHNICIAN Impressions 03/23/2024 3:47 PM LIGHTING TECHNICIAN IMPRESSION: No acute osseous abnormality. Ordered By: HANG OROSCO Interpreted By: Koffi Saxena MD, 03/23/2024 3:46 PM Narrative 03/23/2024 3:47 PM LIGHTING TECHNICIAN [place] [id number] Examination: XR HIP RT 2V Exam time: [...] Procedure Note Koffi Saxena MD - 03/23/[address] [address] Examination: XR HIP RT 2V Exam time: [...] XR ELBOW RT 2V (03/23/2024 11:26 AM LIGHTING TECHNICIAN) Anatomical Region Laterality Modality Elbow Radiographic Meaghan ging 03/23/2024 3:47 PM LIGHTING TECHNICIAN Impressions 03/23/2024 3:48 PM LIGHTING TECHNICIAN IMPRESSION: No acute osseous abnormality. Ordered By: HANG OROSCO Interpreted By: Koffi Saxena MD, 03/23/2024 3:47 PM Narrative 03/23/2024 3:48 PM LIGHTING TECHNICIAN [place] [id number] Examination: XR ELBOW RT 2V Exam time: [...] Procedure Note Koffi Saxena MD - 03/23/[address] [address] Examination: XR ELBOW RT 2V Exam time: [...] By: Koffi Saxena MD, 03/23/2024 3:47 PM aHng Orosco MD GENERAL IMAGING Final Result * XA PACEMAKER GENERATOR CHANGE (02/17/2024 4:28 PM LIGHTING TECHNICIAN) Anatomical Region Laterality Modality Cardiac Leadership Program Associate Narrative 02/27/2024 12:26 AM LIGHTING TECHNICIAN Table formatting from the original result was not included. [facility] CARDIAC CATHETERIZATION/EP LAB [phone] Pacemaker Replacement Patient's Name: Jonnathan Candelario Date of : 1940 Medical Record: #[id number] Account: #[id number] Physician: Alban Morgan MD Date: 02/17/2024 Procedure: [...] 2+ Procedure: ? Sedation was provided by cath lab radiology technician RN and documented separately for divided doses [...] fibrillation 0.75V Pulse width NA 0.4 ms Commercial Decorator: [employer] Device Model #W1DR01 Device Serial # [id number] Lead Data: Ventricular Lead Model # 5076-52 Ventricular Lead Serial # [id number] Atrial Lead Model #5076-45 Atrial Lead Serial #[id number] Alban Morgan MD MH/ Interpreted: 02/23/24 Transcribed: 02/23/24 Alban Morgan MD [employer]ARROW [employer] BRAKEMAN Final Resul t * PROTIME/INR, VENOUS (02/17/2024 11:31 AM LIGHTING TECHNICIAN) [facility] PROTIME 12.9 10.2 - 12.9 SEC 02/17/2024 12:02 PM LIGHTING TECHNICIAN [facility] INR 1.1 02/17/2024 12:02 PM LIGHTING TECHNICIAN [facility] Comment: Recommended INR Therapeutic Goals: 2.0-3.0 Routine Therapy 2.5-3.5 Mechanical Prosthetic Valves (High Risk) 02/17/2024 11:3 1 AM LIGHTING TECHNICIAN Alban Morgan MD LABORATORY Final Resul t [facility] [address] [place] [address], [place] [phone] * (ABNORMAL) BASIC METABOLIC PANEL (02/17/2024 11:31 AM LIGHTING TECHNICIAN) GLUCOSE 97 70 - 99 MG/DL 02/17/2024 12:01 PM [facility] BUN 21(H) 7 - 18 MG/DL 02/17/2024 12:01 PM [facility] CREATININE S/P/B 1.57(H) 0.7 - 1.3 MG/DL 02/17/2024 12:01 PM [facility] SODIUM S/P/B 138 136 - 145 MMOL/L 02/17/2024 12:01 PM [facility] POTASSIUM S/P/B 4.1 3.5 - 5.1 MMOL/L 02/17/2024 12:01 PM [facility] CHLORIDE S/P/B 107 97 - 115 MMOL/L 02/17/2024 12:01 PM [facility] CO2 26.0 21 - 32 MMOL/L 02/17/2024 12:01 PM [facility] CALCIUM S/P/B 9.4 8.5 - 10.1 MG/DL 02/17/2024 12:01 PM [facility] ANION GAP 5.0 2 - 10 MMOL/L 02/17/2024 12:01 PM [facility] BUN CREATININE RATIO 13.4 6 - 26 02/17/2024 12:01 PM [facility] GFR ESTIMATE 43(L) >90 ML/MIN/1.7 3 M2 02/17/2024 12:01 PM [facility] Comment: NOTE: eGFR is not calculated for patients <18 years of age or gender unknown. This is an estimated GFR calculation using the new CKD EPI creatinine equation without race and so does not require a correction factor for race. This estimated GFR should not be used for calculating drug doses. 02/17/2024 11:3 1 AM LIGHTING TECHNICIAN us Alban Morgan MD LABORATORY Final Resul t [facility] [address] [place] [address], * (ABNORMAL) CBC W/DIFF AUTOMATED (02/17/2024 11:31 AM LIGHTING TECHNICIAN) WBC 4.98 4.5 - 11.0 x10'3/uL 02/17/2024 11:44 AM LIGHTING TECHNICIAN [facility] RBC 4.35(L) 4.70 - 6.10 x10'6/uL 02/17/2024 11:44 AM [facility] HGB 13.7(L) 14.0 - 18.0 G/DL 02/17/2024 11:44 AM [facility] HCT 41.5(L) 43.0 - 54.0 % 02/17/2024 11:44 AM [facility] MCV 95.4(H) 80.0 - 94.0 FL 02/17/2024 11:44 AM [facility] MCH 31.5(H) 27.0 - 31.0 PG 02/17/2024 11:44 AM [facility] MCHC 33.0 32.0 - 36.0 G/DL 02/17/2024 11:44 AM [facility] RDW 13.7 11.5 - 14.5 % 02/17/2024 11:44 AM [facility] PLT 189 130 - 400 x10'3/uL 02/17/2024 11:44 AM [facility] MPV 9.8 9.3 - 12.2 FL 02/17/2024 11:44 AM [facility] DIFFERENTIAL TYPE AUTOMATED DIFFERENTIAL 02/17/2024 11:44 AM [facility] NEUTROPHILS % 46.8 % 02/17/2024 11:44 AM LIGHTING TECHNICIAN [facility] LYMPHOCYTES % 43.0 % 02/17/2024 11:44 AM [facility] MONOCYTES % 7.0 % 02/17/2024 11:44 AM [facility] EOSINOPHILS 2.4 % 02/17/2024 11:44 AM LIGHTING TECHNICIAN [facility] BASOPHILS 0.6 % 02/17/2024 11:44 AM LIGHTING TECHNICIAN [facility] IMMATURE GRANS % 0.2 % 02/17/20 11:44 AM [facility] ABS. NEUTROPHILS 2.33 1.80 - 7.70 x10'3/uL 02/17/2024 11:44 AM [facility] ABS. LYMPHOCYTES 2.14 1.00 - 4.80 x10'3/uL 02/17/2024 11:44 AM LIGHTING TECHNICIAN [facility] ABS. MONOCYTES 0.35 0.30 - 0.82 x10'3/uL 02/17/2024 11:44 AM [facility] ABS. EOSINOPHILS 0.12 0.04 - 0.54 x10'3/uL 02/17/2024 11:44 AM LIGHTING TECHNICIAN [facility] ABS. BASOPHILS 0.03 0.01 - 0.08 x10'3/uL 02/17/2024 11:44 AM LIGHTING TECHNICIAN [facility] ABS. IMMATURE GRANULOCYTES 0.01 0.00 - 0.49 x10'3/uL 02/17/2024 11:44 AM [facility] 02/17/2024 11:3 1 AM LIGHTING TECHNICIAN us Alban Morgan MD LABORATORY Final Resul t [facility] [address] [place] [address], [place] [phone] * MRSA SCREENING (02/17/2024 11:26 AM LIGHTING TECHNICIAN) SPEC DESCRIPTION NASAL 02/17/2024 11:26 AM LIGHTING TECHNICIAN [facility] SPECIAL REQUESTS NO SPECIAL REQUEST 02/17/2024 11:26 AM LIGHTING TECHNICIAN [facility] CULTURE RESULT NO METHICILLIN RESISTANT STAPHYLOCOCCUS AUREUS ISOLATED 02/18/2024 12:46 PM LIGHTING TECHNICIAN [facility] SPECIMEN FROM INTERNAL NOSE / Unknown 02/17/2024 11:26 AM LIGHTING TECHNICIAN 02/17/2024 11:34 AM LIGHTING TECHNICIAN Alban Morgan MD MICROBIOLOGY - GENERAL ELVIA CHAN Final Result Performing Organization Address City/State/[facility] Co de Phone Number [facility] [address] [place] [address], [place] [phone] * (ABNORMAL) LIPID PANEL (01/27/2021 4:34 AM LIGHTING TECHNICIAN) CHOLESTEROL 82 <200 MG/DL 01/27/2021 5:58 AM [facility] TRIGLYCERIDES 56 <150 MG/DL 01/27/2021 5:58 AM LIGHTING TECHNICIAN [facility] HDL 34(L) >40.0 MG/DL 01/27/2021 5:58 AM [facility] LDL (CALCULATED) 37 <100 MG/DL 01/28/20 5:58 AM [facility] NON HDL CHOLESTEROL 48 <130 MG/DL 01/27 5:58 AM [facility] CHOL/HDL RATIO 2.4 0.0 - 4.5 01/27/2021 5:58 AM [facility] VLDL CALCULATION 11 5 - 55 MG/DL 01/27/2021 5:58 AM LIGHTING TECHNICIAN [facility] LIPID INTERPRETATION 01/27/2021 5:58 AM LIGHTING TECHNICIAN [facility] Comment: NIH CONCENSUS REPORT RECOMMENDATIONS: ADULT CHILD LOW RISK: CHOLESTEROL <200 <170 TRIGLYCERIDE <150 --- HDL >=60 --- LDL <100 <110 BORDERLINE: CHOLESTEROL 200-239 170-199 TRIGLYCERIDE 150-199 --- HDL 40-59 --- LDL 100-159 110-129 HIGH RISK: CHOLESTEROL >=240 >=200 TRIGLYCERIDE >=200 --- HDL <40 --- LDL >=160 >=130 01/27/2021 4:34 AM LIGHTING TECHNICIAN Jhony Houser PA-C LABORATORY Final Result Performing Organization Address City/[facility] de Phone Number [facility] [address] [place] [address], [place] [phone] * (ABNORMAL) HEMOGLOBIN, GLYCOSYLATED (01/26/2021 9:30 AM LIGHTING TECHNICIAN) HGB A1C 7.7(H) <5.7 % 01/26/2021 2:26 PM LIGHTING TECHNICIAN [facility] Comment: ADA GUIDELINES 2010 5.7 TO 6.4% INCREASED RISK OF DIABETES > OR = 6.5% CONSISTENT WITH DIABETES ESTIMATED AVG GLUCOSE 174 mg/dL 01/26/2021 2:26 PM LIGHTING TECHNICIAN [facility] 01/26/2021 9:30 AM LIGHTING TECHNICIAN Jhony Houser PA-C LABORATORY Final Result Performing Organization Address City/[facility]/ZIP Co de Phone Number [facility] [address] [place] [address], [place] [phone] from Last 3 Months or Most Recently [...] 12:46 PM 01/27/2021 7:21 PM Care Teams Checkerer Hand Relationship Specialty Start Date End Date Hang Orosco MD [address] [phone] PCP - General INTERNAL MEDICINE 01/26/21 Wilmer Bhagat DO [address] [facility] [address] [facility] [address] [place] [address] Vascular/Wire Bound Box Machine Operator INTERNAL MEDICINE 01/26/21
--- OUTSIDE RECORDS SUMMARY | 2024-05-03 13:26 | XMS_ITS | Clinical Summary ---
Author Organization [facility] Address [address] [place] [address] Phone Care Team Providers Care Commercial Sales Director Name Role Phone Varun Orosco MD Primary Care Provider [phone] Medications hydrALAZINE (APRESOLINE) 100 mg Tablet tablet [...] , 12/21/2016 Medical Devices Implanted Type Area Follow Up Manager Device Identifier Shelf Expiration Date Model / Serial / Lot Pacemaker Pacemaker [employer] [id number] / [id number] / Description:MRI conditional - adina 09/02/[address] Bhagat, phone # [phone] Insurance [employer] GOLD PLUS HMO MCR Advance Directives For more information, please contact: [phone] * Full Code (Latest Code Status on File) Date Activated Date Inactivated Comments 09/02/2020 3:52 AM 09/03/2020 4:16 PM Care Teams Commercial Sales Director Relationship Specialty Start Date End Date Varun Orosco MD [address] [phone] PCP - General Internal Medicine 09/02/20
--- OUTSIDE RECORDS SUMMARY | 2024-05-03 13:26 | XMS_ITS | Referral Summary ---
Author Organization [facility] [address] Address [address] [place] [address] Care Team Providers Care Supervisor Accounting Clerks Name Role Phone Varun Orosco MD Primary [...] on file Legal Sex Male 2:45 AM DEICER TESTER Gender Identity Not on file Sexual Orientation Not on file Plan of Treatment Not on file Medical Devices Implanted Type Area Fresco Artist Device Identifier Shelf Expiration Date Model / Serial / Lot Pacemaker-2016 Implanted:10/22 by Alban Ordoñez MD (Quantity not on file) Pacemaker Chest Medtronic [address] DR FLOYD / [id number] / Insurance COVJARRED ZAPATARA Care Teams Supervisor Accounting Clerks Relationship Specialty Start Date End Date Varun Orosco MD PCP - General Internal Medicine 10/25/16
--- NOTE | 2024-05-03 14:13 | ED.GENADULT ---
HPI - General Adult General Chief complaint: Fall Stated complaint: fall yesterday, back/shoulder pain Time Seen by Provider: 05/03/24 11:52 History of Present Illness HPI narrative: 83-year-old male presents emergency department for evaluation after having a ground level fall. Patient does complain of left shoulder lower back and head pain. Related Data Home Medications ?Medication ?Instructions ?Recorded ?Confirmed ?Last Taken ?Type pantoprazole 40 mg tablet,delayed 40 mg PO QAM 03/06/19 05/03/24 05/02/24 History release (Protonix) tamsulosin 0.4 mg capsule (Flomax) 0.4 mg PO DAILY 03/06/19 05/03/24 05/02/24 History divalproex 250 mg tablet,delayed 250 mg PO Q12H 04/28/23 05/03/24 05/02/24 History release lacosamide 10 mg/mL oral solution 50 mg PO BID 04/28/23 05/03/24 05/02/24 History metformin 500 mg tablet 500 mg PO BID 04/28/23 05/03/24 05/02/24 History amlodipine 10 mg tablet 10 mg PO DAILY 05/03/24 05/03/24 05/02/24 History atorvastatin 20 mg tablet 80 mg PO DAILY 05/03/24 05/03/24 05/02/24 History Allergies Allergy/AdvReac Type Severity Reaction Status Date / Time clarithromycin Allergy Unknown Unknown Verified 05/03/24 11:09 venom-honey bee Allergy Unknown Unknown Verified 05/03/24 11:09 lisinopril AdvReac Unknown Cough Verified 05/03/24 11:09 Review of Systems Review of Systems: ROS unobtainable: Yes unobtainable due to mental status PMFSH Past Medical History Medical History Arthritis of both glenohumeral joints Chronic a-fib Chronic obstructive pulmonary disease, unspecified CKD (chronic kidney disease) stage 3, GFR 30-59 ml/min Controlled type 2 diabetes mellitus without complication COPD exacerbation Degenerative arthritis of knee, bilateral Essential hypertension Left carotid stenosis Nonrheumatic aortic valve regurgitation Obstructive sleep apnea Pacemaker Seizures Stenosis of right carotid artery Upper respiratory infection with cough and congestion Surgical History Surgical History History of cholecystectomy Family History Family History Sibling Hypertension Patient's sister is in good health Patient's brother is in good health Mother Family history of malignant neoplasm Father Carcinoma of colon Other Family history of cardiovascular disease Social History Social History Smoking status: Never smoker Second hand tobacco smoke exposure: No Alcohol intake: former Substance use: never Do You Feel Safe in your Home?: Yes Lack of Transportation: No Lack of Food: Never True Current Housing: Decline to Answer Concerned About Future Housing: No Difficulty Paying Gas/Electric Bills: No Difficulty Paying for Meds: No Currently Unemployed: No Education: Decline to Answer Difficulty w/ Childcare or Family Care: No Living arrangements: with family Occupation/Education: retired Gender identity (if verbalized by the patient): Male Exam Narrative: APPEARANCE: Well appearing, no pain, no distress, well-nourished. HEAD: normocephalic, atraumatic. EYES: PERRLA/EOMI, conjunctivae clear. NOSE: Normal no drainage EARS:TMS clear with good light reflex. THROAT: Pharynx clear, no exudate. NECK: Supple. No adenopathy, no masses. RESPIRATORY: Airway patent, respirations nonlabored. Clear to auscultation bilaterally, no rales, rhonchi, wheezing. CARDIOVASCULAR: Regular rate and rhythm without murmurs rubs or gallops. ABDOMINAL: Soft, nontender, nondistended, normal bowel sounds MUSCULOSKELETAL: Moves all extremities. Strength/ROM intact, No edema, No calf tenderness. NEURO: Alert. Cranial nerves II through XII intact. Good gait. Good coordination SKIN: Warm, dry. Normal Color Course Vital Signs Vital signs: Vital Signs Temperature 97.2 F L 05/03/24 09:33 Pulse Rate 66 05/03/24 09:33 Respiratory Rate 16 05/03/24 09:33 Blood Pressure 116/42 L 05/03/24 09:33 Pulse Oximetry 99 05/03/24 09:33 Temperature 97.2 F L 05/03/24 09:33 Pulse Rate 62 05/03/24 14:00 Respiratory Rate 21 H 05/03/24 14:00 Blood Pressure 129/62 05/03/24 14:00 Pulse Oximetry 97 05/03/24 14:00 Medical Decision Making MDM Narrative Medical decision making narrative: 83-year-old male presenting emergency department for evaluation for left-sided rib pain and clavicle pain after having a ground level fall. Patient does have gait instability and does have frequent falls. Patient's primary complaint was left-sided rib pain. Patient does have old lacerations to his upper lip and chin. Imaging of CT brain, CT face and cervical spine was negative. CT chest showed no acute fractures of clavicle or shoulder but did show a left rib fracture with no evidence of pneumonia or pneumothorax. Patient family updated the results of the workup. Patient was discharged home with an incentive spirometer. All questions concerns were addressed patient was well-appearing at time of discharge. Differential Diagnosis Differential Diagnosis: Subdural hematoma, subarachnoid hemorrhage, pneumothorax, rib fracture Vital Signs Vital Signs: Vital Signs Temperature 97.2 F L 05/03/24 09:33 Pulse Rate 66 05/03/24 09:33 Respiratory Rate 16 05/03/24 09:33 Blood Pressure 116/42 L 05/03/24 09:33 Pulse Oximetry 99 05/03/24 09:33 Temperature 97.2 F L 05/03/24 09:33 Pulse Rate 62 05/03/24 14:00 Respiratory Rate 21 H 05/03/24 14:00 Blood Pressure 129/62 05/03/24 14:00 Pulse Oximetry 97 05/03/24 14:00 Imaging Data Radiologist's impression: Impressions Head CT 05/03/24 13:06 IMPRESSION: 1. No fracture or acute intracranial process. 2. 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 2. Age-related changes including mild diffuse volume loss and mild scattered white matter hypoattenuation consistent with chronic small vessel ischemic disease. Head/Cervical Spine/Facial Bones CT 05/03/24 13:09 IMPRESSION: 1. No maxillofacial fractures. 2. Severe cervical spondylosis with no acute osseous abnormality. Thoracic Spine CT 05/03/24 13:10 IMPRESSION: 1. Moderate thoracic spondylosis. 2. DISH. 3. Thoracic dextroscoliosis. Chest CT 05/03/24 13:26 IMPRESSION: 1. Left 10th rib fracture. Discharge Plan Discharge Clinical Impression: Facial injury, Fracture of rib Patient Disposition: Home, Self-Care Condition: Stable Instructions: Antibiotic Form, How to Use an Incentive Spirometer (ED), Rib Fracture (ED) Additional Instructions: Incentive spirometry as directed. Have close follow-up with your primary care physician. If you have any worsening symptoms please call or return to the emergency department. Patient Language: Croatian Prescriptions: No Action budesonide-formoterol [Symbicort] 160-4.5 mcg/actuation HFA aerosol inhaler 2 puff INHALATION Q12H Qty: 10.2 11RF Rx Instructions: Rinse and spit after each use. Use with spacer. divalproex 250 mg tablet,delayed release (DR/EC) 250 mg PO Q12H lacosamide 10 mg/mL solution 50 mg PO BID metformin 500 mg tablet 500 mg PO BID furosemide 20 mg tablet 20 mg PO QAM Qty: 90 2RF hydralazine 50 mg tablet See Rx Instructions .ROUTE .COMPLEX Qty: 180 2RF Dose Instruction: TAKE 1 TABLET BY MOUTH TWICE DAILY Rx Instructions: TAKE 1 TABLET BY MOUTH TWICE DAILY tamsulosin [Flomax] 0.4 mg capsule 0.4 mg PO DAILY pantoprazole [Protonix] 40 mg tablet,delayed release (DR/EC) 40 mg PO QAM amlodipine 10 mg tablet 10 mg PO DAILY atorvastatin 20 mg tablet 80 mg PO DAILY Eliquis 2.5 mg tablet See Rx Instructions .ROUTE .COMPLEX Qty: 60 5RF Dose Instruction: TAKE 1 TABLET BY MOUTH TWICE DAILY Rx Instructions: TAKE 1 TABLET BY MOUTH TWICE DAILY Jardiance 10 mg tablet See Rx Instructions .ROUTE .COMPLEX Qty: 30 12RF Dose Instruction: TAKE 1 TABLET BY MOUTH DAILY Rx Instructions: TAKE 1 TABLET BY MOUTH DAILY Follow-up/Referrals: Kwesi,Varun Silverio MD [Primary Care Provider] -
== END 2024-05-03 14:48 | disposition home or self-care (01) ==
PROVIDERS: Emergency Provider Emergency Medicine; PCP Internal Medicine
DX: S22.32XA Fracture of one rib, left side, initial encounter for closed fracture (principal); S01.511D Laceration without foreign body of lip, subsequent encounter; S01.81XD Laceration without foreign body of other part of head, subsequent encounter; R29.6 Repeated falls; J44.9 Chronic obstructive pulmonary disease, unspecified; I35.1 Nonrheumatic aortic (valve) insufficiency; I65.23 Occlusion and stenosis of bilateral carotid arteries; I48.20 Chronic atrial fibrillation, unspecified; I12.9 Hypertensive chronic kidney disease with stage 1 through stage 4 chronic kidney disease, or unspecified chronic kidney disease; E11.22 Type 2 diabetes mellitus with diabetic chronic kidney disease; N18.30 Chronic kidney disease, stage 3 unspecified; M19.042 Primary osteoarthritis, left hand; M19.041 Primary osteoarthritis, right hand; G47.33 Obstructive sleep apnea (adult) (pediatric); Z95.0 Presence of cardiac pacemaker; Z90.49 Acquired absence of other specified parts of digestive tract; Z79.84 Long term (current) use of oral hypoglycemic drugs; Z79.01 Long term (current) use of anticoagulants; Z79.899 Other long term (current) drug therapy; W18.30XA Fall on same level, unspecified, initial encounter; W06.XXXD Fall from bed, subsequent encounter; M47.812 Spondylosis without myelopathy or radiculopathy, cervical region; M47.814 Spondylosis without myelopathy or radiculopathy, thoracic region; M41.9 Scoliosis, unspecified; M48.14 Ankylosing hyperostosis [Forestier], thoracic region
CPT/HCPCS: 70450; 70486; 71250; 72125; 72128; 93005; 99284

== ENCOUNTER 2024-05-08 15:59 | Outpatient (CLI) | payer MEDICARE, SELFPAY ==
--- NOTE | ~2024-05-08 | US_ITS ---
EXAMINATION: US carotid duplex BI DATE: 05/08/2024 16:34 INDICATION: Occlusion and stenosis of left carotid artery. TECHNIQUE: Grayscale, color Doppler, and pulsed Doppler images of the cervical carotid arteries were obtained. The degree of vessel stenosis is placed in one of the following categories: normal, <50%, 5 0-69%, >=70% but less than near-occlusion, near-occlusion, or total occlusion. Note that percent sten osis relative to normal distal artery lumen diameter is indirectly measured from velocity measurement s as described by Samy, et al. Radiology 2003; 229:340-346. COMPARISON: Ultrasound 05/17/2023 FINDINGS: RIGHT: The right common carotid artery (CCA) peak systolic velocity (PSV) is 64 cm/s. The right internal car otid artery (ICA) PSV is 77 cm/s. The right ICA end-diastolic velocity (EDV) is 8 cm/s. The right ICA /CCA PSV ratio is 1.2. Grayscale and color Doppler images yield an estimate of <50% diameter reductio n from plaque in the ICA. There is antegrade flow in the right vertebral artery. LEFT: The left CCA PSV is 70 cm/s. The left ICA PSV is 188 cm/s. The left ICA EDV is 30 cm/s. The left ICA/ CCA PSV ratio is 2.7. Grayscale and color Doppler images yield an estimate of >=50% diameter reductio n from plaque in the ICA. There is antegrade flow in the left vertebral artery. IMPRESSION: 1. <50% stenosis in the right internal carotid artery. 2. 50-69% stenosis in the left internal carotid artery. Reviewed, dictated and finalized at location B.
--- OUTSIDE RECORDS SUMMARY | 2024-05-08 17:57 | XMS_ITS | Encounter Summary ---
Author Organization [facility] Address [facility] [place] [address] Care Team Providers Care Pulp Refiner Operator Name Role Phone Varun Orosco MD Primary Care Provider [phone] Wilmer Bhagat DO Unavailable Encounter Details Date Type Department Care Team (Late st Contact Info) Description 01/24/2024 [facility]as Medicine Message Enc [facility], [facility] [address] [place] [address] Alban Morgan MD [facility]. [facility] [address] [place], [place] [id number] Procedure Social History Tobacco Use Types Packs/Day Years Used Date Smoking Tobacco: Never Smokeless Tobacco: Never Alcohol Use Standard Drinks/Week Comments Yes 0 (1 standard drink = 0.6 oz pur e alcohol) rarely [facility] Utilities Answer Date Recorded In the past 12 months has [facility] Accept Software, gas, oil, or water [employer] threatened to shut off services in your [...] often do you attend chur ch or advent services? 1 to 4 times per year 03/27/2023 Do you belong to any clubs o r organizations such as zoroastrian groups, unions, fraternal or athletic groups, or [...] Recorded Patient Health Questionnaire-2 Score 0 05/05/2023 [facility] - Occupational Stress [...] place to sleep or slept in a penitentiary (including now)? No 03/27/2023 Sex and Gender Information Value Date Recorded Sex Assigned at Male 03/22/2024 12:04 PM GOLF CLUB HEAD INSPECTOR Legal Sex Male 9:30 AM GOLF CLUB HEAD INSPECTOR Gender Identity Not on file Sexual Orientation [...] Date Author Status No 03/27/2023 10:43 AM GOLF CLUB HEAD INSPECTOR Petrona Mendoza RN Active documented in this encounter Plan of Treatment Upcoming Encounters Date Type Department Care Team (Late st Contact Info) Description 05/21/2024 2:00 PM CDT [facility] [place] [place] [address] Alban Morgan MD [facility]. [address] [place] [address] 07/16/2024 9:30 AM CDT Office Visit [facility] [address] [place] [address] Bradley Kulkarni MD [facility] [address] [place], [place] [address] 03/28/2025 9:00 AM GOLF CLUB HEAD INSPECTOR Office Visit [facility] [address] [place] [address] Alban Morgan MD [facility]. [address] [place] [address] documented as of this encounter Goals Goal [...] Total Score: 0 02/13/20 21 2:42 PM GOLF CLUB HEAD INSPECTOR documented as of this encounter Care Teams Pulp Refiner Operator Relationship Specialty Start Date End Date Varun Orosco MD [address] [facility] [address] [place] [id number] PCP - General INTERNAL MEDICINE 01/26/21 Wilmer Bhagat DO [address] [place] [address] Vascular/Incinerator Plant Laborer INTERNAL MEDICINE 01/26/21 documented as of this encounter
--- OUTSIDE RECORDS SUMMARY | 2024-05-08 17:57 | XMS_ITS | Clinical Summary ---
Author Organization [facility] [address] Address [address] [place] [address] Care Team Providers Care Rail Specialist Name Role Phone Varun Orosco MD [...] on file Legal Sex Male 2:[address] Gender Identity Not on file Sexual Orientation Not on file Plan of Treatment Not on file Medical Devices Implanted Type Area Watch Technician Device Identifier Shelf Expiration Date Model / Serial / Lot Pacemaker-2016 Implanted:10/22 by Alban Ordoñez MD (Quantity not on file) Pacemaker Chest [employer] ADVISA [address] FLOYD / [id number] / [facility] Care Teams Rail Specialist Relationship Specialty Start Date End Date Varun Orosco MD PCP - General Internal Medicine 10/25/16
--- OUTSIDE RECORDS SUMMARY | 2024-05-08 17:57 | XMS_ITS | Referral Summary ---
Author Organization [facility] [address] Address [address] [place] [address] Care Team Providers Care Estimator Printing Plate Making Name Role Phone Varun Orosco MD Primary [...] on file Legal Sex Male 2:45 AM COMMUNITY ENGAGEMENT MANAGER Gender Identity Not on file Sexual Orientation Not on file Plan of Treatment Not on file Medical Devices Implanted Type Area Marzipan Maker Device Identifier Shelf Expiration Date Model / Serial / Lot Pacemaker-2016 Implanted:10/22 by Alban Ordoñez MD (Quantity not on file) Pacemaker Chest Medtronic ADVISA DR FLOYD / [id number] / Insurance [employer]OV[employer]ED [employer] Care Teams Estimator Printing Plate Making Relationship Specialty Start Date End Date Varun Orosco MD PCP - General Internal Medicine 10/25/16
--- OUTSIDE RECORDS SUMMARY | 2024-05-08 17:57 | XMS_ITS | Encounter Summary ---
Author Organization [facility] Address [address] [place] [address] Care Team Providers Care Moderate Needs Teacher Name Role Phone Varun Orosco MD Primary Care Provider [phone] Encounter Details Date Type Department Care Team (Late st Contact Info) Description 05/04/2021 Telephone [facility] [id number] [place] [address] Janet Fletcher MD [address] [facility] [address] [place] [address] Social History Tobacco Use Types Packs/Day [...] - jaclyn Caruso - 05/04/2021 12:03 PM HIGH SCHOOL HVAC R INSTRUCTOR Was unable to leave a message for a pt due to no voicemail. [employer] SCHOOL HVAC R INSTRUCTOR documented in this encounter Plan of Treatment Not on file documented as of this encounter Visit Diagnoses Not on filedocumented in this encounter Care Teams Moderate Needs Teacher Relationship Specialty Start Date End Date Varun Orosco MD [address] [facility] [address] [place] [address] PCP - General Internal Medicine 09/02/20 documented as of this encounter
--- OUTSIDE RECORDS SUMMARY | 2024-05-08 17:57 | XMS_ITS | Clinical Summary ---
Author Organization [facility] Address [address] [place] [address] Phone Care Team Providers Care Security Services Specialist Name Role Phone Varun Orosco MD Primary Care Provider [phone] Medications hydrALAZINE (APRESOLINE) 100 mg Tablet tablet [...] , 12/21/2016 Medical Devices Implanted Type Area Waste Disposal Plant Operator Device Identifier Shelf Expiration Date Model / Serial / Lot Pacemaker Pacemaker [employer] [id number] / [id number] / Description:MRI conditional - adina 09/02/[address] Bhagat, phone # [phone] Insurance [employer] GOLD PLUS HMO MCR Advance Directives For more information, please contact: [phone] * Full Code (Latest Code Status on File) Date Activated Date Inactivated Comments 09/02/2020 3:52 AM 09/03/2020 4:16 PM Care Teams Security Services Specialist Relationship Specialty Start Date End Date Varun Orosco MD [address] [address] PCP - General Internal Medicine 09/02/20
--- OUTSIDE RECORDS SUMMARY | 2024-05-08 17:57 | XMS_ITS | Clinical Summary ---
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 12/13/2023 Active pravastatin (PRAVACHOL) 10 MG tablet Take 1 tablet (10 mg total) by mouth daily. 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 Seizures ([facility]) 03/27/2023 Class 1 obesity 03/03/2023 Essential tremor 01/28/2023 Low back pain 10/01/2022 Pain of right hip joint 10/01/2022 Hyperlipidemia 05/24/2022 Tremor 05/18/2022 Diabetic peripheral neuropathy ([facility]) 05/18/2022 COVID-19 03/18/2022 Chronic renal failure 01/26/2022 Osteoarthrosis 03/24/2021 Localized, primary osteoarthritis of shoulder re gion 02/12/2021 CVA (cerebral vascular accident) ([facility]) 01/27/2021 Seizure ([facility]) 01/26/2021 Bilateral carotid artery stenosis 09/02/2020 Provoked seizure ([facility]) 09/02/2020 Stage 3a chronic kidney disease 09/02/2020 Pure hypercholesterolemia 02/05/2020 Type 2 diabetes mellitus wit hout complication ([facility]) 02/17/2018 Cardiac pacemaker in situ 10/26/2016 Overview (01/26/2021): Medtronic Dual Pacemaker Dx; Tachy/Denis DOI 10/22/2016. Carelink remote home monitoring Q3 months, Office pacer checks Q1 year. Atrial fibrillation ([facility]) 10/26/2016 Anemia 10/11/2016 Essential hypertension 09/28/2016 Pulmonary emphysema ([facility]) 09/28/2016 Gastroesophageal reflux disease 09/28/2016 Benign prostatic hyperplasia 09/28/2016 SSS (sick sinus syndrome) ([facility]) Encounters Date Type Department Care Team Description 04/12/2024 Telephone [facility] Multispec[facility]ty [facility] - [address], [address] [place] [address] Mendel Rea MD Appointment Request (Botox/Follow up) 03/23/2024 10:34 AM HULL MOLDER - 03/23/2024 11:59 PM HULL MOLDER Hospital Encounter [facility] [address] [place], [place] [id number] Hang Orosco MD Discharge Disposition: Home or Self Care (Routine Discharge) 03/22/2024 12:30 PM HULL MOLDER [facility] [address] [place], [place] [phone] Anya Julien PA Sick Sinus Syndrome; Follow Up 03/22/2024 Travel 03/09/2024 Telephone [facility] [address] [place], [place] [phone] Christina Araya RN Returned Call 03/09/2024 Telephone [facility] [address] [place], [place] [address] Silke Bailon MA Information 03/02/2024 Telephone [facility], [address] [address] Christina Araya RN No Show 02/17/2024 11:26 AM HULL MOLDER - 02/17/2024 11:59 PM HULL MOLDER Hospital Encounter [place] [address] Alban Morgan MD Discharge Disposition: Home or Self Care (Routine Discharge) 02/17/2024 11:26 AM HULL MOLDER - 02/17/2024 5:30 PM HULL MOLDER Hospital Encounter [facility] [place] [address] Alban Morgan MD Portera Mankins, Sally B, MD Discharge Disposition: Home or Self Care (Routine Discharge) 02/17/2024 Travel 02/17/2024 Orders Only [facility] [place] [address] Alban Morgan MD from Last 3 Months Immunizations Name Administration Dates Next Due COVID-19 Vaccine (Generic) 01/04/2023,07/03/2020 ,06/03/2020 Influenza (FluMist) 01/04/2023 Influenza (Generic) 12/01/2019,12/08/2017 Influenza Adult (Generic) 11/26/2021,09/2020,12/11/2018,2017,12/21/2016 [employer] ([employer]) COVID-19 AD26 VACCINE 0.5 ML IM SUSP 01/17/2021,05/06/2020 [employer] COVID-19 (ORIGINAL FORMULATION, PURPLE CAP) mRNA, LNP-S, PF, 30 MCG/0.3 ML DOSE 11/26/2021 Pneumococcal (Pneumovax 23) 06/16/2018 Pneumococcal (Prevnar 13) 12/21/2016 RSV MAB, UNSPECIFIED 02/08/2023 Social History Tobacco Use Types Packs/Day Years Used Date Smoking Tobacco: Never Smokeless Tobacco: Never Tobacco Cessation:Counseling Given: Not Answered Alcohol Use Standard Drinks/Week Comments Yes 0 (1 standard drink = 0.6 oz pur e alcohol) rarely [facility] Utilities Answer Date Recorded In the [...] week 03/27/2023 How often do you attend [facility]? 1 to 4 times per year 03/27/2023 Do you belong to any clubs o r organizations such as buddhist groups, unions, fraternal or athletic groups, or [...] Recorded Patient Health Questionnaire-2 Score 0 05/05/2023 [facility] Occupat ional Health - Occupational Stress [...] place to sleep or slept in a [place] health care facility (including now)? No 03/27/2023 Sex and Gender Information Value Date Recorded Sex Assigned at Male 03/22/2024 12:04 PM HULL MOLDER Legal Sex Male 9:30 AM HULL MOLDER Gender Identity Not on file Sexual Orientation Not on file Last Filed Vital Signs Vital Sign Reading Time Taken Comments Blood Pressure 100/40 03/22/2024 12:42 PM HULL MOLDER Pulse 71 03/22/2024 12:42 PM HULL MOLDER Temperature 36.3 C (97.4 F) 02/17/2024 12:30 PM HULL MOLDER Respiratory Rate 20 02/17/2024 5:00 PM HULL MOLDER Oxygen Saturation 97% 03/22/2024 12:42 PM HULL MOLDER Inhaled Oxygen Concentration - - Weight 69.4 kg (153 lb) 03/22/2024 12:42 PM HULL MOLDER Height 162.6 cm (5' 4 ) 03/22/2024 12:42 PM HULL MOLDER Body Mass Index 26.26 03/22/2024 12:42 PM HULL MOLDER Plan of Treatment Upcoming Encounters Date Type Department Care Team (Late st Contact Info) Description 05/21/2024 2:00 PM CDT Allied Health/[facility] [address] [place] [address] Alban Morgan MD [facility]. [address] [place] [address] 07/16/2024 9:30 AM CDT Office Visit [facility] [place] [address] Bradley Kulkarni MD [facility] [address] [place] [address] 03/28/2025 9:00 AM HULL MOLDER Office Visit [facility] [address] [place] [address] Alban Morgan MD [facility]. [address] [place] [address] Health Maintenance Due Date Last Done Comments [...] 11/26/2021, 01/05/2021, Additional history exists PHQ-2 (Physician [place]) 02/29/2024 05/05/2023 Pneumococcal Vaccine: 65+ Years Completed [...] upon discharge from hospital General No Liliana Saenz RN Medical Devices Implanted Type Area Sustainable Development Policy Analyst Device Identifier Shelf Expiration Date Model / Serial / Lot Ra Lead Implant-2016 Implanted:Qty : 1 on 10/22/2016 by Alban Ordoñez MD Lead Implant Atrium [employer]TRONIC CARDIAC RHYTHM AND HEART FAILURE - DIV M 5076 / [id number] / Rv Lead Implant-2016 Implanted:Qty : 1 on 10/22/2016 by Alban Ordoñez MD Lead Implant Ventricle [employer] CARDIAC RHYTHM AND HEART FAILURE - DIV M 5076 / [id number] / Pacemaker- Implanted: by Alban Morgan MD (Quantity not on file) Pacemaker Chest [employer] CARDIAC RHYTHM AND HEART FAILURE - DIV M 06/11/2025 / [id number] / Explanted Type Area Sustainable Development Policy Analyst Device Identifier Shelf Expiration Date Model / Serial / Lot Pacemaker-Medt -10/22/2016 Implanted:09/29 (Quantity not on file) Explanted:01/29 by Alban Morgan MD (Quantity not on file) Pacemaker MEDTR[employer] CARDIAC RHYTHM AND HEART FAILURE - DIV M [id number] [id number] / [id number] / Description:Pacemaker is MRI safe per Medtronic 01/26/2021 Procedures Procedure Name Priority Date/Time Associated Diagnosis Comments XR WRIST RT MIN 3V Routine 03/23/2024 11 :26 AM HULL MOLDER Right wrist pain XR ELBOW RT 2V Routine 03/23/2024 11:26 AM HULL MOLDER Right elbow pain XR HIP RT 2V Routine 03/23/2024 11:26 AM HULL MOLDER Right hip pain XR SHOULDER RT MIN 2V Routine 03/23/2024 11:26 AM HULL MOLDER Right shoulder pain XA PACEMAKER GENERATOR CHANGE Routine 02/17/2024 4:28 PM HULL MOLDER Paroxysmal atrial fibrillation (CMS/HCC HHS/HCC) SSS (sick sinus syndrome) (CMS/HCC HHS/HCC) Pacemaker generator end of life PROTHROMBIN TIME, VENOUS STAT 02/17/2024 11:31 AM HULL MOLDER Paroxysmal atrial fibrillation (CMS/HCC HHS/HCC) SSS (sick sinus syndrome) (CMS/HCC HHS/HCC) Pacemaker generator end of life CBC W/DIFF AUTOMATED STAT 02/17/2024 11:31 AM HULL MOLDER Paroxysmal atrial fibrillation (CMS/HCC HHS/HCC) SSS (sick sinus syndrome) (CMS/HCC HHS/HCC) Pacemaker generator end of life BASIC METABOLIC PANEL STAT 02/17/2024 11:31 AM HULL MOLDER Paroxysmal atrial fibrillation (CMS/HCC HHS/HCC) SSS (sick sinus syndrome) (CMS/HCC HHS/HCC) Pacemaker generator end of life MRSA SCREENING STAT 02/17/2024 11:26 AM HULL MOLDER Paroxysmal atrial fibrillation (CMS/HCC HHS/HCC) SSS (sick sinus syndrome) (CMS/HCC HHS/HCC) Pacemaker generator end of life LIPID PANEL Routine 01/27/2021 4:34 AM HULL MOLDER HEMOGLOBIN, GLYCOSYLATED Routine 01/26/2021 9:30 AM HULL MOLDER from Last 3 Months or Most Recently Relevant to Health Maintenance Results * XR WRIST RT MIN 3V (03/23/2024 11:26 AM HULL MOLDER) Anatomical Region Laterality Modality Wrist Radiographic Meaghan ging 03/23/2024 3:48 PM HULL MOLDER Impressions 03/23/2024 3:49 PM HULL MOLDER IMPRESSION: No acute osseous abnormality. Ordered By: HANG OROSCO Interpreted By: Koffi Saxena MD, 03/23/2024 3:48 PM Narrative 03/23/2024 3:49 [place] [address] Examination: XR WRIST RT MIN 3V Exam [...] Procedure Note Koffi Saxena MD - 03/23/[address] [address] Examination: XR WRIST RT MIN 3V Exam [...] SHOULDER RT MIN 2V (03/23/2024 11:26 AM HULL MOLDER) Anatomical Region Laterality Modality Shoulder Radiographic Meaghan ging 03/23/2024 3:45 PM HULL MOLDER Impressions 03/23/2024 3:46 PM HULL MOLDER IMPRESSION: No acute osseous abnormality. Severe glenohumeral osteoarthritis. Ordered By: HANG OROSCO Interpreted By: Koffi Saxena MD, 03/23/2024 3:45 PM Narrative 03/23/2024 3:46 PM HULL MOLDER [address] [address] Examination: XR SHOULDER RT MIN 2V Exam [...] Procedure Note Koffi Saxena MD - 03/23/[address] [address] Examination: XR SHOULDER RT MIN 2V Exam [...] XR HIP RT 2V (03/23/2024 11:26 AM HULL MOLDER) Anatomical Region Laterality Modality Hip Radiographic Meaghan ging 03/23/2024 3:46 PM HULL MOLDER Impressions 03/23/2024 3:47 PM HULL MOLDER IMPRESSION: No acute osseous abnormality. Ordered By: HANG OROSCO Interpreted By: Koffi Saxena MD, 03/23/2024 3:46 PM Narrative 03/23/2024 3:47 PM HULL MOLDER [place] [id number] Examination: XR HIP RT 2V Exam time: [...] Procedure Note Koffi Saxena MD - 03/23/[address] [address] Examination: XR HIP RT 2V Exam time: [...] XR ELBOW RT 2V (03/23/2024 11:26 AM HULL MOLDER) Anatomical Region Laterality Modality Elbow Radiographic Meaghan ging 03/23/2024 3:47 PM HULL MOLDER Impressions 03/23/2024 3:48 PM HULL MOLDER IMPRESSION: No acute osseous abnormality. Ordered By: HANG OROSCO Interpreted By: Koffi Saxena MD, 03/23/2024 3:47 PM Narrative 03/23/2024 3:48 PM HULL MOLDER [address] [address] Examination: XR ELBOW RT 2V Exam time: [...] Procedure Note Koffi Saxena MD - 03/23/[address] [address] Examination: XR ELBOW RT 2V Exam time: [...] Ordered By: HANG OROSCO Interpreted By: Koffi Saexna MD, 03/23/2024 3:47 PM Hang Orosco MD GENERAL IMAGING Final Result * XA PACEMAKER GENERATOR CHANGE (02/17/2024 4:28 PM HULL MOLDER) Anatomical Region Laterality Modality Cardiac Account Management Assistant Narrative 02/27/2024 12:26 AM HULL MOLDER Table formatting from the original result was not included. [facility] CARDIAC CATHETERIZATION/EP LAB [phone] Pacemaker Replacement Patient's Name: Jonnathan Candelario Date of : 1940 Medical Record: #[id number] Account: #[id number] Physician: Alban Morgan MD Date: 02/17/2024 Procedure: [...] 2+ Procedure: ? Sedation was provided by labor specialist RN and documented separately for divided doses [...] fibrillation 0.75V Pulse width NA 0.4 ms Sustainable Development Policy Analyst: [employer] Device Model #W1DR01 Device Serial # [id number] Lead Data: Ventricular Lead Model # 5076-52 Ventricular Lead Serial # [id number] Atrial Lead Model #5076-45 Atrial Lead Serial #[id number] Alban Morgan MD MH/ Interpreted: 02/23/24 Transcribed: 02/23/24 Alban Morgan MD ERP IMPLEMENTATION CONSULTANT Final Resul t * PROTIME/INR, VENOUS (02/17/2024 11:31 AM HULL MOLDER) Pathologist [facility] PROTIME 12.9 10.2 - 12.9 SEC 02/17/2024 12:[address] [facility] INR 1.1 02/17/2024 12:[address] [facility] Comment: Recommended INR Therapeutic Goals: 2.0-3.0 Routine Therapy 2.5-3.5 Mechanical Prosthetic Valves (High Risk) 02/17/2024 11:3 1 AM HULL MOLDER Alban Morgan MD LABORATORY Final Resul t [facility] [address] [place] [address], [place] [phone] * (ABNORMAL) BASIC METABOLIC PANEL (02/17/2024 11:31 AM HULL MOLDER) [facility] GLUCOSE 97 70 - 99 MG/DL 02/17/2024 12:01 PM [facility] BUN 21(H) 7 - 18 MG/DL 02/17/2024 12:01 PM [facility] CREATININE S/P/B 1.57(H) 0.7 - 1.3 MG/DL 02/17/2024 12:01 PM [facility] SODIUM S/P/B 138 136 - 145 MMOL/L 02/17/2024 12:01 PM [facility] POTASSIUM S/P/B 4.1 3.5 - 5.1 MMOL/L 02/17/2024 12:01 PM [facility] CHLORIDE S/P/B 107 97 - 115 MMOL/L 02/17/2024 12:01 PM [facility] CO2 26.0 21 - 32 MMOL/L 02/17/2024 12:01 PM [facility] CALCIUM S/P/B 9.4 8.5 - 10.1 MG/DL 02/17/2024 12:01 PM [facility] ANION GAP 5.0 2 - 10 MMOL/L 02/17/2024 12:01 PM [facility] BUN CREATININE RATIO 13.4 6 - 26 02/17/2024 12:01 PM [facility] GFR ESTIMATE 43(L) >90 ML/MIN/1.7 3 M2 02/17/2024 12:01 PM [facility] Comment: NOTE: eGFR is not calculated for patients <18 years of age or gender unknown. This is an estimated GFR calculation using the new CKD EPI creatinine equation without race and so does not require a correction factor for race. This estimated GFR should not be used for calculating drug doses. 02/17/2024 11:3 1 AM HULL MOLDER us Alban Morgan MD LABORATORY Final Resul t [facility] [address] [place] [address], * (ABNORMAL) CBC W/DIFF AUTOMATED (02/17/2024 11:31 AM HULL MOLDER) WBC 4.98 4.5 - 11.0 x10'3/uL 02/17/2024 11:44 AM [facility] RBC 4.35(L) 4.70 - 6.10 x10'6/uL 02/17/2024 11:44 AM [facility] HGB 13.7(L) 14.0 - 18.0 G/DL 02/17/2024 11:44 AM [facility] HCT 41.5(L) 43.0 - 54.0 % 02/17/2024 11:44 AM [facility] MCV 95.4(H) 80.0 - 94.0 FL 02/17/2024 11:44 AM [facility] MCH 31.5(H) 27.0 - 31.0 PG 02/17/2024 11:44 AM [facility] MCHC 33.0 32.0 - 36.0 G/DL 02/17/2024 11:44 AM [facility] RDW 13.7 11.5 - 14.5 % 02/17/2024 11:44 AM [facility] PLT 189 130 - 400 x10'3/uL 02/17/2024 11:44 AM [facility] MPV 9.8 9.3 - 12.2 FL 02/17/2024 11:44 AM [facility] DIFFERENTIAL TYPE AUTOMATED DIFFERENTIAL 02/17/2024 11:44 AM [facility] NEUTROPHILS % 46.8 % 02/17/2024 11:44 AM [facility] LYMPHOCYTES % 43.0 % 02/17/2024 11:44 AM [facility] MONOCYTES % 7.0 % 02/17/2024 11:44 AM [facility] EOSINOPHILS 2.4 % 02/17/2024 11:[address] [facility] BASOPHILS 0.6 % 02/17/2024 11:44 AM [facility] IMMATURE GRANS % 0.2 % 02/17/20 11:44 AM [facility] ABS. NEUTROPHILS 2.33 1.80 - 7.70 x10'3/uL 02/17/2024 11:44 AM [facility] ABS. LYMPHOCYTES 2.14 1.00 - 4.80 x10'3/uL 02/17/2024 11:44 AM [facility] ABS. MONOCYTES 0.35 0.30 - 0.82 x10'3/uL 02/17/2024 11:44 AM [facility] ABS. EOSINOPHILS 0.12 0.04 - 0.54 x10'3/uL 02/17/2024 11:44 AM [facility] ABS. BASOPHILS 0.03 0.01 - 0.08 x10'3/uL 02/17/2024 11:44 AM [facility] ABS. IMMATURE GRANULOCYTES 0.01 0.00 - 0.49 x10'3/uL 02/17/2024 11:44 AM [facility] 02/17/2024 11:3 1 AM HULL MOLDER us Alban Morgan MD LABORATORY Final Resul t [facility] [address] [place] [address], * MRSA SCREENING (02/17/2024 11:26 AM HULL MOLDER) SPEC DESCRIPTION NASAL 02/17/2024 11:[address] [facility] SPECIAL REQUESTS NO SPECIAL REQUEST 02/17/2024 11:[address] [facility] CULTURE RESULT NO METHICILLIN RESISTANT STAPHYLOCOCCUS AUREUS ISOLATED 02/18/2024 12:[address] [facility] SPECIMEN FROM INTERNAL NOSE / Unknown 02/17/2024 11:26 AM HULL MOLDER 02/17/2024 11:34 AM HULL MOLDER Alban Morgan MD MICROBIOLOGY - GENERAL ELVIA CHAN Final Result [facility] [address] [place] [address], * (ABNORMAL) LIPID PANEL (01/27/2021 4:34 AM HULL MOLDER) CHOLESTEROL 82 <200 MG/DL 01/27/2021 5:58 AM [facility] TRIGLYCERIDES 56 <150 MG/DL 01/27/2021 5:58 AM [facility] HDL 34(L) >40.0 MG/DL 01/27/2021 5:58 AM [facility] LDL (CALCULATED) 37 <100 MG/DL 01/28/20 5:58 AM [facility] NON HDL CHOLESTEROL 48 <130 MG/DL 01/27 5:58 AM [facility] CHOL/HDL RATIO 2.4 0.0 - 4.5 01/27/2021 5:58 AM [facility] VLDL CALCULATION 11 5 - 55 MG/DL 01/27/2021 5:[address] [facility] LIPID INTERPRETATION 01/27/2021 5:[address] [facility] Comment: NIH CONCENSUS REPORT RECOMMENDATIONS: ADULT CHILD LOW RISK: CHOLESTEROL <200 <170 TRIGLYCERIDE <150 --- HDL >=60 --- LDL <100 <110 BORDERLINE: CHOLESTEROL 200-239 170-199 TRIGLYCERIDE 150-199 --- HDL 40-59 --- LDL 100-159 110-129 HIGH RISK: CHOLESTEROL >=240 >=200 TRIGLYCERIDE >=200 --- HDL <40 --- LDL >=160 >=130 01/27/2021 4:34 AM HULL MOLDER Jhony Houser PA-C LABORATORY Final Result Performing Organization Address [facility] Co de Phone Number [facility] [address] [place] [address], [place] [phone] * (ABNORMAL) HEMOGLOBIN, GLYCOSYLATED (01/26/2021 9:30 AM HULL MOLDER) HGB A1C 7.7(H) <5.7 % 01/26/2021 2:[address] [facility] Comment: ADA GUIDELINES 2010 5.7 TO 6.4% INCREASED RISK OF DIABETES > OR = 6.5% CONSISTENT WITH DIABETES ESTIMATED AVG GLUCOSE 174 mg/dL 01/26/2021 2:[address] [facility] 01/26/2021 9:30 AM HULL MOLDER Jhony Houser PA-C LABORATORY Final Result Performing Organization Address [facility]/ZIP Co de Phone Number [facility] [address] [place] [address], [place] [phone] from Last 3 Months or Most Recently [...] 12:46 PM 01/27/2021 7:21 PM Care Teams Retail Branch Manager Relationship Specialty Start Date End Date Hang Orosco MD [address] [facility] [address] [place] [phone] PCP - General INTERNAL MEDICINE 01/26/21 Wilmer Bhagat DO [address] [facility] [address] [place] [address] Vascular/Rn Chemical Dependency INTERNAL MEDICINE 01/26/21
== END 2024-05-08 16:00 | disposition home or self-care (01) ==
PROVIDERS: PCP Internal Medicine; Visit Provider Internal Medicine Cardiovascular Disease
DX: I65.23 Occlusion and stenosis of bilateral carotid arteries (principal)
CPT/HCPCS: 93880

== ENCOUNTER 2024-06-08 09:58 | Outpatient (CLI) | payer MEDICARE, SELFPAY ==
[2024-06-08 10:28] LABS: Hematocrit 43.9 % (42.0-52.0); Hemoglobin 14.4 g/dL (14.0-18.0); Mean Corpuscular HGB Conc 32.8 g/dl (32-36); Mean Corpuscular Hemoglobin 30.6 pg (26-34); Mean Corpuscular Volume 93.4 fl (80-100); Mean Platelet Volume 9.9 fl (7.4-10.4); Platelet Count Result 179 k/mm3 (150-375); Red Cell Distribution Width 15.5 % (11.5-14.5); White Blood Count 4.9 K/mm3 (4.5-10.0)
--- OUTSIDE RECORDS SUMMARY | 2024-06-08 10:33 | XMS_ITS | Encounter Summary ---
Author Organization [facility] Address Critical access hospital[address] [place] [address] Care Team Providers Care Accounting Bookkeeper Name Role Phone Varun Orosco MD Primary Care Provider [phone] Wilmer Bhagat DO Unavailable Encounter Details Date Type Department Care Team (Late st Contact Info) Description 01/24/2024 Colorescience Message Enc [facility], [facility] [address] [place] [address] Alban Morgan MD [facility]. [facility] [address] [place], [place] [address] Procedure Social History Tobacco Use Types Packs/Day Years Used Date Smoking Tobacco: Never Smokeless Tobacco: Never Alcohol Use Standard Drinks/Week Comments Yes 0 (1 standard drink = 0.6 oz pur e alcohol) rarely [facility] Utilities Answer Date Recorded In the past 12 months has [facility] [employer], gas, oil, or water [employer] threatened to shut off services in your [...] often do you attend chur ch or mormonism services? 1 to 4 times per year 03/27/2023 Do you belong to any clubs o r organizations such as catholic groups, unions, fraternal or athletic groups, or [...] Recorded Patient Health Questionnaire-2 Score 0 05/05/2023 [facility] - Occupational Stress [...] place to sleep or slept in a group home (including now)? No 03/27/2023 Sex and Gender Information Value Date Recorded Sex Assigned at Male 03/22/2024 12:04 PM GROUP CIO Legal Sex Male 9:30 AM GROUP CIO Gender Identity Not on file Sexual Orientation [...] Date Author Status No 03/27/2023 10:43 AM GROUP CIO Petrona Mendoza RN Active documented in this encounter Plan of Treatment Upcoming Encounters Date Type Department Care Team (Late st Contact Info) Description 07/16/2024 9:30 AM CDT Office Visit [facility] [address] [place] [address] Bradley Kulkarni MD Three [facility] [address] [place] [address] 08/20/2024 2:35 PM CDT Allied Health/Nurse Visit [facility], [place] [place] [address] Alban Morgan MD [facility]. [place] [address] [place] [address] 03/28/2025 9:00 AM GROUP CIO Office Visit [facility], [address] [place] [address] Alban Morgan MD [facility]. [address] [place] [address] documented as of this encounter Goals Goal Patient Goal Type Associated Problems Recent Progress Patient-Stated? Author Patient will return to prior living situation and remain independent in ADLs upon discharge from hospital General No Liliana Saenz, STNA documented as of this encounter Visit Diagnoses Not on filedocumented in this encounter Additional Health Concerns Assessment Noted Time PHQ-9 Depression Total Score: 0 02/13/20 21 2:42 PM GROUP CIO documented as of this encounter Care Teams Accounting Bookkeeper Relationship Specialty Start Date End Date Varun Orosco MD [address] [facility] [address] [place] [address] PCP - General INTERNAL MEDICINE 01/26/21 Wilmer Bhagat DO [address] [place] [address] Vascular/Soil Science Professor INTERNAL MEDICINE 01/26/21 documented as of this encounter
--- OUTSIDE RECORDS SUMMARY | 2024-06-08 10:33 | XMS_ITS | Encounter Summary ---
Author Organization [facility] Address [address] [place] [address] Care Team Providers Care Cloth Printer Name Role Phone Varun Orosco MD Primary Care Provider [phone] Encounter Details Date Type Department Care Team (Late st Contact Info) Description 05/04/2021 Telephone [facility] - [facility] [id number] [place] [address] Janet Fletcher MD [address] [facility] [address] [place] [address] Social History Tobacco Use Types Packs/Day [...] - jaclyn Caruso - 05/04/2021 12:03 PM TIE MAN Was unable to leave a message for a pt due to no voicemail. Kr MAN documented in this encounter Plan of Treatment Not on file documented as of this encounter Visit Diagnoses Not on filedocumented in this encounter Care Teams Cloth Printer Relationship Specialty Start Date End Date Varun Orosco MD [address] [facility] [address] [place] [address] PCP - General Internal Medicine 09/02/20 documented as of this encounter
--- OUTSIDE RECORDS SUMMARY | 2024-06-08 10:33 | XMS_ITS | Clinical Summary ---
Author Organization [facility] Address [address] [place] [address] Phone Care Team Providers Care Burglar Alarm Inspector Name Role Phone Varun Orosco MD Primary Care Provider [phone] Medications hydrALAZINE (APRESOLINE) 100 mg Tablet tablet [...] , 12/21/2016 Medical Devices Implanted Type Area Chucking Machine Set Up Operator Device Identifier Shelf Expiration Date Model / Serial / Lot Pacemaker Pacemaker [employer] [id number] / [id number] / Description:MRI conditional - adina 09/02/[address] Bhagat, phone # [phone] Insurance [employer] GOLD PLUS HMO MCR Advance Directives For more information, please contact: [phone] * Full Code (Latest Code Status on File) Date Activated Date Inactivated Comments 09/02/2020 3:52 AM 09/03/2020 4:16 PM Care Teams Burglar Alarm Inspector Relationship Specialty Start Date End Date Varun Orosco MD [address] [address] PCP - General Internal Medicine 09/02/20
--- OUTSIDE RECORDS SUMMARY | 2024-06-08 10:33 | XMS_ITS | Clinical Summary ---
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
--- OUTSIDE RECORDS SUMMARY | 2024-06-08 10:33 | XMS_ITS | Clinical Summary ---
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 12/13/2023 Active pravastatin (PRAVACHOL) 10 MG tablet Take 1 tablet (10 mg total) by mouth daily. 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 Seizures ([facility]) 03/27/2023 Class 1 obesity 03/03/2023 Essential tremor 01/28/2023 Low back pain 10/01/2022 Pain of right hip joint 10/01/2022 Hyperlipidemia 05/24/2022 Tremor 05/18/2022 Diabetic peripheral neuropathy ([facility]) 05/18/2022 COVID-19 03/18/2022 Chronic renal failure 01/26/2022 Osteoarthrosis 03/24/2021 Localized, primary osteoarthritis of shoulder re gion 02/12/2021 CVA (cerebral vascular accident) ([facility]) 01/27/2021 Seizure ([facility]) 01/26/2021 Bilateral carotid artery stenosis 09/02/2020 Provoked seizure ([facility]) 09/02/2020 Stage 3a chronic kidney disease 09/02/2020 Pure hypercholesterolemia 02/05/2020 Type 2 diabetes mellitus wit hout complication ([facility]) 02/17/2018 Cardiac pacemaker in situ 10/26/2016 Overview (01/26/2021): Medtronic Dual Pacemaker Dx; Tachy/Denis DOI 10/22/2016. Carelink remote home monitoring Q3 months, Office pacer checks Q1 year. Atrial fibrillation ([facility]) 10/26/2016 Anemia 10/11/2016 Essential hypertension 09/28/2016 Pulmonary emphysema ([facility]) 09/28/2016 Gastroesophageal reflux disease 09/28/2016 Benign prostatic hyperplasia 09/28/2016 SSS (sick sinus syndrome) ([facility]) Encounters Date Type Department Care Team Description 05/21/2024 Travel 05/20/2024 2:20 PM CDT [facility], [address] [address] Alban Morgan MD Remote Device Check 04/12/2024 Telephone [facility] Multispecialty Care - [address], [address] [place] [address] Mendel Rea MD Appointment Request (Botox/Follow up) 03/23/2024 10:34 AM MANAGER EDUCATION - 03/23/2024 11:59 PM MANAGER EDUCATION Hospital Encounter [facility] [address] [place] [address] Hang Orosco MD Discharge Disposition: Home or Self Care (Routine Discharge) 03/22/2024 12:30 PM MANAGER EDUCATION Office Visit [facility], [facility] [address] [place] [address] Anya Julien PA Sick Sinus Syndrome; Follow Up 03/22/2024 Travel from Last 3 Months Immunizations Name Administration Dates Next Due COVID-19 Vaccine (Generic) 01/04/2023,07/03/2020 ,06/03/2020 Influenza (FluMist) 01/04/2023 Influenza (Generic) 12/01/2019,12/08/2017 Influenza Adult (Generic) 11/26/2021,09/2020,12/11/2018,2017,12/21/2016 [employer] ([employer]) COVID-19 AD26 VACCINE 0.5 ML IM SUSP 01/17/2021,05/06/2020 [employer] COVID-19 (ORIGINAL FORMULATION, PURPLE CAP) mRNA, LNP-S, PF, 30 MCG/0.3 ML DOSE 11/26/2021 Pneumococcal (Pneumovax 23) 06/16/2018 Pneumococcal (Prevnar 13) 12/21/2016 RSV MAB, UNSPECIFIED 02/08/2023 Social History Tobacco Use Types Packs/Day Years Used Date Smoking Tobacco: Never Smokeless Tobacco: Never Tobacco Cessation:Counseling Given: Not Answered Alcohol Use Standard Drinks/Week Comments Yes 0 (1 standard drink = 0.6 oz pur e alcohol) rarely [facility] [employer]ities Answer Date Recorded In the past 12 months has [employer], [employer], oil, or water [employer] threatened to shut off services in your [...] week 03/27/2023 How often do you attend [facility] or baptism services? 1 to 4 times per year 03/27/2023 Do you belong to any clubs o r organizations such as congregation groups, unions, fraternal or athletic groups, or [...] Recorded Patient Health Questionnaire-2 Score 0 05/05/2023 [facility] - [...] Sex Assigned at Male 03/22/2024 12:04 PM MANAGER EDUCATION Legal Sex Male 9:30 AM MANAGER EDUCATION Gender Identity Not on file Sexual Orientation Not on file Last Filed Vital Signs Vital Sign Reading Time Taken Comments Blood Pressure 100/40 03/22/2024 12:42 PM MANAGER EDUCATION Pulse 71 03/22/2024 12:42 PM MANAGER EDUCATION Temperature 36.3 C (97.4 F) 02/17/2024 12:30 PM MANAGER EDUCATION Respiratory Rate 20 02/17/2024 5:00 PM MANAGER EDUCATION Oxygen Saturation 97% 03/22/2024 12:42 PM MANAGER EDUCATION Inhaled Oxygen Concentration - - Weight 69.4 kg (153 lb) 03/22/2024 12:42 PM MANAGER EDUCATION Height 162.6 cm (5' 4 ) 03/22/2024 12:42 PM MANAGER EDUCATION Body Mass Index 26.26 03/22/2024 12:42 PM MANAGER EDUCATION Plan of Treatment Upcoming Encounters Date Type Department Care Team (Late st Contact Info) Description 07/16/2024 9:30 AM CDT Office Visit [facility] [place] [address] Bradley Kulkarni MD [facility], [address] [place] [address] 08/20/2024 2:35 PM CDT Allied Health/Nurse Visit [facility], [address] [address] Alban Morgan MD [address] [place] [address] 03/28/2025 9:00 AM MANAGER EDUCATION Office Visit [facility], [address] [address] Alban Morgan MD [facility]. [address] [address] Health Maintenance Due Date Last Done Comments [...] 2023 01/04/2023, 11/26/2021, 02/04/2021, Additional history exists PHQ-2 (Physician Resighini) 02/29/2024 05/05/2023 Pneumococcal Vaccine: 65+ Years Completed [...] in ADLs upon discharge from hospital General Liliana Silveira RN Medical Devices Implanted Type Area Granulator Operator Device Identifier Shelf Expiration Date Model / Serial / Lot Ra Lead Implant-2016 Implanted:Qty : 1 on 10/22/2016 by Alban Ordoñez MD Lead Implant Atrium MEDTRONIC CARDIAC RHYTHM AND HEART FAILURE - DIV M 5076 / [id number] / Rv Lead Implant-2016 Implanted:Qty : 1 on 10/22/2016 by Alban Ordoñez MD Lead Implant Ventricle [employer] CARDIAC RHYTHM AND HEART FAILURE - DIV M 5076 / [id number] / Pacemaker- Implanted: by Alban Morgan MD (Quantity not on file) Pacemaker Chest [employer]TR[employer]IC CARDIAC RHYTHM AND HEART FAILURE - DIV M 06/11/2025 / [id number] / Explanted Type Area Granulator Operator Device Identifier Shelf Expiration Date Model / Serial / Lot Pacemaker-Medt -10/22/2016 Implanted:09/29 (Quantity not on file) Explanted:01/29 by Alban Morgan MD (Quantity not on file) Pacemaker MEDTRONIC CARDIAC RHYTHM AND HEART FAILURE - DIV M [id number] [id number] / [id number] / Description:Pacemaker is MRI safe per Medtronic 01/26/2021 Procedures Procedure Name Priority Date/Time Associated Diagnosis Comments XR WRIST RT MIN 3V Routine 03/23/2024 11 :26 AM MANAGER EDUCATION Right wrist pain XR ELBOW RT 2V Routine 03/23/2024 11:26 AM MANAGER EDUCATION Right elbow pain XR HIP RT 2V Routine 03/23/2024 11:26 AM MANAGER EDUCATION Right hip pain XR SHOULDER RT MIN 2V Routine 03/23/2024 11:26 AM MANAGER EDUCATION Right shoulder pain LIPID PANEL Routine 01/27/2021 4:34 AM MANAGER EDUCATION HEMOGLOBIN, GLYCOSYLATED Routine 01/26/2021 9:30 AM MANAGER EDUCATION from Last 3 Months or Most Recently Relevant to Health Maintenance Results * XR WRIST RT MIN 3V (03/23/2024 11:26 AM MANAGER EDUCATION) Anatomical Region Laterality Modality Wrist Radiographic Meaghan ging 03/23/2024 3:48 PM MANAGER EDUCATION Impressions 03/23/2024 3:49 PM MANAGER EDUCATION IMPRESSION: No acute osseous abnormality. Ordered By: HANG OROSCO Interpreted By: Koffi Saxena MD, 03/23/2024 3:48 PM Narrative 03/23/2024 3:49 PM MANAGER EDUCATION [address] [address] Examination: XR WRIST RT MIN 3V Exam [...] Procedure Note Koffi Saxena MD - 03/23/[address] [address] Examination: XR WRIST RT MIN 3V Exam [...] SHOULDER RT MIN 2V (03/23/2024 11:26 AM MANAGER EDUCATION) Anatomical Region Laterality Modality Shoulder Radiographic Meaghan ging 03/23/2024 3:45 PM MANAGER EDUCATION Impressions 03/23/2024 3:46 PM MANAGER EDUCATION IMPRESSION: No acute osseous abnormality. Severe glenohumeral osteoarthritis. Ordered By: HANG OROSCO Interpreted By: Koffi Saxena MD, 03/23/2024 3:45 PM Narrative 03/23/2024 3:46 PM MANAGER EDUCATION [address] [address] Examination: XR SHOULDER RT MIN 2V Exam [...] Procedure Note Koffi Saxena MD - 03/23/[address] [address] Examination: XR SHOULDER RT MIN 2V Exam [...] XR HIP RT 2V (03/23/2024 11:26 AM MANAGER EDUCATION) Anatomical Region Laterality Modality Hip Radiographic Meaghna ging 03/23/2024 3:46 PM MANAGER EDUCATION Impressions 03/23/2024 3:47 PM MANAGER EDUCATION IMPRESSION: No acute osseous abnormality. Ordered By: HANG OROSCO Interpreted By: Koffi Saxena MD, 03/23/2024 3:46 PM Narrative 03/23/2024 3:47 PM MANAGER EDUCATION [address] [address] Examination: XR HIP RT 2V Exam time: [...] Procedure Note Koffi Saxena MD - 03/23/[address] [address] Examination: XR HIP RT 2V Exam time: [...] XR ELBOW RT 2V (03/23/2024 11:26 AM MANAGER EDUCATION) Anatomical Region Laterality Modality Elbow Radiographic Meaghan ging 03/23/2024 3:47 PM MANAGER EDUCATION Impressions 03/23/2024 3:48 PM MANAGER EDUCATION IMPRESSION: No acute osseous abnormality. Ordered By: HANG OROSCO Interpreted By: Koffi Saxena MD, 03/23/2024 3:47 PM Narrative 03/23/2024 3:48 PM MANAGER EDUCATION [address] [address] Examination: XR ELBOW RT 2V Exam time: [...] Procedure Note Koffi Saxena MD - 03/23/[address] [address] Examination: XR ELBOW RT 2V Exam time: [...] Orosco MD GENERAL IMAGING Final Result * (ABNORMAL) LIPID PANEL (01/27/2021 4:34 AM MANAGER EDUCATION) CHOLESTEROL 82 <200 MG/DL 01/27/2021 5:58 AM MANAGER EDUCATION [facility] TRIGLYCERIDES 56 <150 MG/DL 01/27/2021 5:58 AM MANAGER EDUCATION [facility] HDL 34(L) >40.0 MG/DL 01/27/2021 5:58 AM MANAGER EDUCATION [facility] LDL (CALCULATED) 37 <100 MG/DL 01/28/20 5:58 AM MANAGER EDUCATION [facility] NON HDL CHOLESTEROL 48 <130 MG/DL 01/27 5:58 AM MANAGER EDUCATION [facility] CHOL/HDL RATIO 2.4 0.0 - 4.5 01/27/2021 5:58 AM MANAGER EDUCATION [facility] VLDL CALCULATION 11 5 - 55 MG/DL 01/27/2021 5:58 AM [facility] LIPID INTERPRETATION 01/27/2021 5:58 AM [facility] Comment: NIH CONCENSUS REPORT RECOMMENDATIONS: ADULT CHILD LOW RISK: CHOLESTEROL <200 <170 TRIGLYCERIDE <150 --- HDL >=60 --- LDL <100 <110 BORDERLINE: CHOLESTEROL 200-239 170-199 TRIGLYCERIDE 150-199 --- HDL 40-59 --- LDL 100-159 110-129 HIGH RISK: CHOLESTEROL >=240 >=200 TRIGLYCERIDE >=200 --- HDL <40 --- LDL >=160 >=130 01/27/2021 4:34 AM MANAGER EDUCATION Jhony Houser PA-C LABORATORY Final Result Performing Organization Address City/[facility]/ZIP Co de Phone Number [facility] [address] [place] [address], [place] [phone] * (ABNORMAL) HEMOGLOBIN, GLYCOSYLATED (01/26/2021 9:30 AM MANAGER EDUCATION) HGB A1C 7.7(H) <5.7 % 01/26/2021 2:26 PM MANAGER EDUCATION [facility] Comment: ADA GUIDELINES 2010 5.7 TO 6.4% INCREASED RISK OF DIABETES > OR = 6.5% CONSISTENT WITH DIABETES ESTIMATED AVG GLUCOSE 174 mg/dL 01/26/2021 2:26 PM MANAGER EDUCATION [facility] 01/26/2021 9:30 AM MANAGER EDUCATION Jhony Houser PA-C LABORATORY Final Result Performing Organization Address City/[facility]/ZIP Co de Phone Number [facility] [address] [place] [address], [place] [phone] from Last 3 Months or Most Recently [...] 12:46 PM 01/27/2021 7:21 PM Care Teams Forestry Extension Specialist Relationship Specialty Start Date End Date Hang Orosco MD [address] [facility] [address] [place] [address] PCP - General INTERNAL MEDICINE 01/26/21 Wilmer Bhagat DO [address] [facility] [address] [place] [address] Vascular/Skein Yarn Dyer INTERNAL MEDICINE 01/26/21
--- OUTSIDE RECORDS SUMMARY | 2024-06-08 10:33 | XMS_ITS | Referral Summary ---
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
[2024-06-08 10:59] LABS: Creatinine Urine 47.7 mg/dL; Total Protein Urine Random 9 mg/dL; Ur Ttl Prot Creatinine Ratio 0.19 mg/mg (0-0.20)
[2024-06-08 11:07] LABS: Parathyroid Intact 81.3 pg/mL (14.5-75.2)
[2024-06-08 11:13] LABS: Vitamin D 25 Hydroxy 33.6 ng/mL
[2024-06-11 12:20] LABS: Albumin Level 4.2 g/dL (3.5-5.1); Anion Gap 12 mmol/L (4-12); Blood Urea Nitrogen 24 mg/dL (9-20); Calcium 9.5 mg/dL (8.4-10.2); Carbon Dioxide 23 mmol/L (22-30); Chloride 104 mmol/L (98-107); Estimated Glomerular Filt Rate 44; Glucose 125 mg/dL (65-110); Phosphorus 3.5 mg/dL (2.5-4.5); Potassium 4.6 mmol/L (3.4-5.0); Sodium 139 mmol/L (137-145)
== END 2024-06-08 09:59 | disposition home or self-care (01) ==
PROVIDERS: PCP Internal Medicine; Visit Provider Internal Medicine Nephrology
DX: N18.32 Chronic kidney disease, stage 3b (principal); E21.1 Secondary hyperparathyroidism, not elsewhere classified
CPT/HCPCS: 36415; 80069; 82306; 82570; 83970; 84156; 85027